=== PATIENT | male | born 1985 | race Caucasian/White ===

== ENCOUNTER 2022-02-13 23:42 | Inpatient (IN) | payer OTHER, SELFPAY ==
--- NOTE | 2022-02-14 | ECG_ITS ---
Test Reason : qtc check Blood Pressure : / mmHG Vent. Rate : 069 BPM Atrial Rate : 069 BPM P-R Int : 160 ms QRS Dur : 086 ms QT Int : 380 ms P-R-T Axes : 072 059 051 degrees QTc Int : 407 ms Normal sinus rhythm Normal ECG No previous ECGs available Referred By: Zachariah Sutton Electronically Signed By:IWONA FREDERICK
[2022-02-14 00:01] VITALS: BP 104/68; PULSE 64; RESP 16; TEMP 36.4; O2SAT 100
[2022-02-14 00:48] VITALS: BMI 20.7
[2022-02-14] MEDS: OLANZapine 5 MG TABLET PO (01:15)
--- NOTE | 2022-02-14 03:00 | PC.ADMIT ---
pt was transferred from [facility] via ambulance. on arrival pt is awake. he responds appropriately to simple questions. he was presented with c-v documentation which was verbally explained to him. pt also took time to read the document. to begin, a great deal of intake information is taken from the medical record due to pts noncompliance with admission process. apparently earlier in the day pts mom contact ems who responded to pts apartment with concerns over his general well being. at this time he was felt to be experiencing a mental health decompensation. a section 12 a was filed at the scene and pt was brought into [facility] for further evaluation. pts mother was concerned that her son had stopped taking his psych meds 2 months ago and had become reclusive. pt had not left his apartment in over 6 weeks. his mom was also concerned that he was not eating or performing his adls. when asked pt does not know the last time he ate or slept. with intake interview, pt avoids eye contact. he is soft spoken and answers very few questions. he either states that he does not know or does not want to answer the question. he is a very poor historian. he is able to state the year, month and day correctly. he answers yes to a hx of opiate dependence but states he has not used. he does not know when he last used. he states that he has had surgery to his lower back and left hand. he does not know when these surgeries were or why they were performed. he refuses to sign any release forms. he does not know what medications he takes or when he last took them. he states he has no allergies. he is unshaven and has an unkempt appearance. he has multiple well healed linear scars on his left arm which the medical record indicates were self inflicted lacerations in 2020 requiring suturing. the condition of his feet is concerning. the soles of his feet are filthy. the right great toe has a black discolored area on the distal portion of the toe. the right foot is discolored with a red/purple area of demarcation about [address] up the foot. a large area of purple discoloration is present on top of the right foot. the left foot is also discolored with swelling noted in the toes and an area of red/purple discoloration extending upward into the lower leg. according to the record and pt these are injuries caused by 3rd degree smith bite. unfortunately pt suffered these thermal injuries on his feet after he was found naked outdoors in May 2021. pt is ambulatory with a steady gait. lab work done at [facility] showed negative NIELSEN and negative covid. following intake pt ate a sandwich with juice and retired for the night.
[2022-02-14 08:00] VITALS: BP 100/60; PULSE 60; RESP 16; TEMP 36.2; O2SAT 98
[2022-02-14] MEDS: OLANZapine 10 MG TABLET PO ×2 (09:17→21:37)
--- NOTE | 2022-02-14 10:08 | P.HPPS_ITS ---
HPI Date of Service: 02/14/22 Chief Complaint: Schizoaffective d/o bipolar type, PTSD, opioid use Sources of Information: patient interviewed, chart reviewed and crisis/core team assessment reviewed HPI Subjective Notes: Tejeda Warning and Conditional Voluntary Narrative: Patient is a 36-year-old male with history of psychotic illness, substance abuse, past psychiatric hospitalizations who presents after his mother 911 Out of concern for patient's worsening disorganization over the past few weeks, no longer attending to ADLs, not eating or feeding his dog. Patient has been off medications Zyprexa and Haldol for at least 2 months. Patient is difficult with which to engage, not wanting to discuss much in giving one-word answers to most questions. During interview, he stays lying on his bed, sometimes opening his eyes to look at telegraphic typewriter operator chief but not wanting to move. He is malodorous and unkempt. He says he stopped taking medications because they did not help much. He consents to restarting Zyprexa Saying it is Good enough however he is unwilling to discuss trying another medication. Patient denies AVH, denies depression denies anxiety denies SI denies HI denies any paranoid or delusional thinking; says he overall sleeps well. He disputes his mother's report and says he has been eating and that he has been feeding his dog. Past Psychiatric History: History of past psychiatric hospitalizations History of superficial self-harm by cutting his arms requiring complex sutures This past May 2021, patient was disorganized, naked outside and suffered third-degree smith bite on his feet Medical Evaluation Reviewed: Yes (refused examination) 3rd degree frostbite discerned from nursing documentation- stable -Pt found naked outdoors in May 2021 -Has chronic red/purple demarcation 3/4 way up right foot with black discoloration of distal right great toe [facility] Medical History (Updated 02/14/22 @ 12:08 by STEVEN Mendez) Chronic pain PTSD (post-traumatic stress disorder) Schizoaffective disorder, bipolar type Family History: Unknown Social History: Graduated high school Patient's ex- and 2 children live with biological mother in [place] Patient currently lives alone in his own apartment with his dog Few to no interactions with anyone other than his mother Substance History: Reported history of substance abuse; patient poor historian Trauma History: Record reports history of trauma, though no details Diagnostics Vital Signs (24Hr): Vital Signs - 24 hr 02/14/22 00:01 Temperature 97.5 F Pulse Rate 64 Respiratory Rate 16 Blood Pressure 104/68 Pulse Oximetry 100 Oxygen Delivery Method Room Air BMI result Body Mass Index 20.7 Meds/Allergies Meds Home Medications Medication Instructions Recorded Confirmed Type clonidine HCl 0.1 mg tablet 1 tab PO BEDTIME 02/14/22 02/14/22 History haloperidol 5 mg tablet mg PO 02/14/22 History hydromorphone 2 mg tablet 1 tab PO Q4H PRN pain 02/14/22 02/14/22 History (Dilaudid) olanzapine 10 mg tablet 1 tab PO BID 02/14/22 02/14/22 History oxcarbazepine 150 mg tablet 1 tab PO BID 02/14/22 02/14/22 History silver sulfadiazine 1 % topical appl topical QAM 02/14/22 History cream (Silvadene) Allergies Allergies Allergy/AdvReac Type Severity Reaction Status Date / Time No Known Allergies Allergy Verified 02/14/22 00:14 Mental Status Exam Mental Status Exam Narrative: Pt is alert and oriented; behavior is guarded, marginally cooperative; patient is not in distress; dressed in hospital attire, Disheveled, malodorous; mood is described as ok and affect constricted; eye contact appropriate; Speech is normal rate, volume and prosody and not pressured; psychomotor retardation present; thought process is goal directed; Thought content is vacuous; able to be pertinent to relevant topics; no delusional, paranoid ideations expressed or solicited; denies any SI/HI. Denies AVH; Patients insight and judgment impaired. Assessment & Plan Assessment & Plan (1) Schizoaffective disorder, bipolar type: Status: Acute Code(s): F25.0 - Schizoaffective disorder, bipolar type (2) PTSD (post-traumatic stress disorder): Status: Acute Code(s): F43.10 - Post-traumatic stress disorder, unspecified Plan Patient is a 36-year-old male with history of psychotic illness, substance abuse, past psychiatric hospitalizations who presents after his mother 911 Out of concern for patient's worsening disorganization over the past few weeks, no longer attending to ADLs, not eating or feeding his dog. Patient is malodorous, disheveled -patient is a poor historian not willing to engage giving very minimal answers, irritable edge. Denies all psych symptoms but agrees to restart Zyprexa. PLAN: CV Q 15 minute checks Zyprexa 10 mg b.i.d. Refuses other medication or medication changes Will need to gather more collateral Patient educated on: diagnosis and medication risk/benefits Informed Consent: understands and further education needed Reason for continued inpatient stay Substantial Risk for: inability to function and rapid decompensation
--- NOTE | 2022-02-14 12:04 | P.CONHOSP_ITS ---
History of Present Illness Data of Consult Service Date: 02/14/22 Requesting physician: Zachariah Sutton Primary Care Provider: TERRANCE Samuels HPI Reason for consult: medical h&p 36 year old male with history of chronic pain possibly from frostbite on dilaudid and schizoaffective d/o bipolar type and ptsd admitted to psychiatry from [facility] [place]. Patient is refusing examination and discussion with hospitalist STEVEN at this time. He does deny any complaints. Review of Systems Review of Systems: General: No fevers, malaise, unintentional weight loss Cardiovascular: No chest pain, palpitations, or leg edema Respiratory: No shortness of breath, wheezing, cough GI: No abdominal pain, nausea, vomiting, diarrhea, constipation, melena, hematochezia Neuro: No headaches, weakness, paresthesias Skin: No rashes or lesions [facility] Medical History (Updated 02/14/22 @ 12:08 by STEVEN Mendez) Chronic pain PTSD (post-traumatic stress disorder) Schizoaffective disorder, bipolar type Pertinent family history: Pt refuses to participate in interview with hospitalist STEVEN at this time. Social History Household Members: None Housing: Unknown / Unable to assess Do you presently have visiting nurse or other home services: No Patient Tobacco Use Status: Current everyday Tobacco user Tobacco use type: Cigarette Smoked in Last 30 Days: Yes e-Cigarette/Vaping Use: Never Used Patient Interested in Nicotine Replacement: Yes Patient Given Instructions on How to Stop Smoking: No (not interested) Second Hand Smoke Exposure: No Use of substances other than those prescribed or required for medical reasons: Yes Substance Use Type: Opiates Substance Use Frequency: Daily Last Used Substance: Unknown Currently Displaying Signs/Symptoms of Drug Intoxication Withdrawal: No Any prior treatment program specific to substance use: No Advance Directives: No Advance Directives Information Provided: No Do you have thoughts of harming others: None Do you have a plan to hurt others: No Plan Recently lost weight without trying: Unsure How much weight loss: Unsure Eating poorly because of decreased appetite: Yes Nutrition screen score: 5 Nutrition Risks: Anorexia and Poor intake 0-25% >4 days Poor oral hygiene: Yes Meds Allergies Allergy/AdvReac Type Severity Reaction Status Date / Time No Known Allergies Allergy Verified 02/14/22 00:14 Active Medications: Current Medications Acetaminophen (Acetaminophen 325 Mg Tablet) 650 mg PO Q6H PRN PRN Reason: Headache/Pain Mild Scale (1-3) Al Hydroxide/Mg Hydroxide (Magnesium Hydrox/Alum Hydrox 30 Ml Oral.Susp) 30 ml PO Q6H PRN PRN Reason: Heartburn/Nausea Diphenhydramine HCl (Diphenhydramine Hcl 25 Mg Tablet) 50 mg PO Q4H PRN PRN Reason: agitation Haloperidol (Haloperidol 5 Mg Tablet) 5 mg PO Q4H PRN PRN Reason: agitation Hydroxyzine HCl (Hydroxyzine Hcl 25 Mg Tablet) 25 mg PO Q6H PRN PRN Reason: Anxiety Lorazepam (Lorazepam 1 Mg Tablet) 2 mg PO Q4H PRN PRN Reason: agitation Magnesium Hydroxide (Milk Of Magnesia 30 Ml Oral.Susp) 30 ml PO DAILY PRN PRN Reason: Constipation Nicotine (Nicotine 21 Mg Patch.Td24) 21 mg TRANSDERMA DAILY PRN PRN Reason: nicotine craving Nicotine Polacrilex (Nicotine Polacrilex 2 Mg Gum) 4 mg BUCCAL Q2H PRN PRN Reason: Nicotine Cravings Olanzapine (Olanzapine 10 Mg Tablet) 10 mg PO BID SABIHA Last Admin: 02/14/22 09:17 Dose: 10 mg Trazodone HCl (Trazodone Hcl 50 Mg Tablet) 50 mg PO BEDTIME PRN PRN Reason: Insomnia Home Medications Medication Instructions Recorded Confirmed Last Taken Type clonidine HCl 0.1 mg tablet 1 tab PO BEDTIME 02/14/22 02/14/22 Unknown History haloperidol 5 mg tablet mg PO 02/14/22 Unknown History hydromorphone 2 mg tablet 1 tab PO Q4H PRN pain 02/14/22 02/14/22 Unknown History (Dilaudid) olanzapine 10 mg tablet 1 tab PO BID 02/14/22 02/14/22 Unknown History oxcarbazepine 150 mg tablet 1 tab PO BID 02/14/22 02/14/22 Unknown History silver sulfadiazine 1 % topical appl topical QAM 02/14/22 Unknown History cream (Silvadene) Physical Exam Vital Signs and Narrative: Vital Signs: Last Vital Signs Temp 97.5 F 02/14/22 00:01 Pulse 64 02/14/22 00:01 Resp 16 02/14/22 00:01 BP 104/68 02/14/22 00:01 Pulse Ox 100 02/14/22 00:01 O2 Del Method 02/14/22 00:01 BMI result Body Mass Index 20.7 Pt refuses exam Assessment and Plan (1) Schizoaffective disorder, bipolar type: Status: Acute (2) PTSD (post-traumatic stress disorder): Status: Acute Plan 36 year old male with history of chronic pain on dilaudid and schizoaffective d/o bipolar type and ptsd admitted to psychiatry. Patient refuses to participate in exam and interview with hospitalist STEVEN at this time. He does deny any medical complaints at this time. 1- Schizoaffective d/o bipolar type -Plan per psychiatry 2-PTSD -Plan per psychiatry 3-Chronic pain of unclear etiology at this time -Continue dilaudid -Plan per psychiatry. 4-3rd degree frostbite discerned from nursing documentation- stable -Pt found naked outdoors in May 2021 -Has chronic red/purple demarcation 3/4 way up right foot with black discoloration of distal right great toe Thank you for allowing me to participate in this consult. Signing off at this time. Please do not hesitate to call for further questions or if pt does have any medical complaints/concerns.
[2022-02-14 16:30] VITALS: BP 95/51; PULSE 68; RESP 16; TEMP 36.3; O2SAT 96
[2022-02-14 19:30] VITALS: BP 86/55; PULSE 88
[2022-02-15 06:00] VITALS: BP 109/68; PULSE 59; RESP 18; TEMP 36.6
[2022-02-15 07:00] VITALS: BMI 21.4
[2022-02-15 08:14] LABS: MANUAL DIFF FLAG NO
[2022-02-15 08:17] LABS: Basophils Percent Auto 0.9 % (0-2); Eosinophils Absolute Auto 0.1 X10*3/uL (0.0-0.4); Eosinophils Percent Auto 2.6 % (0-4); Hematocrit 42.4 % (42.0-52.0); Hemoglobin 14.3 g/dl (14.0-18.0); Imm Gran Abs Auto 0.01 X10*3/uL (0.00-0.03); Imm Gran Pct Auto 0.2 % (0.0-0.4); Lymphocytes Percent Auto 44.2 % (20-40); Mean Corpuscular HGB Conc 33.7 g/dl (31.0-36.0); Mean Corpuscular Hemoglobin 29.9 pg (27.0-33.0); Mean Corpuscular Volume 88.7 fL (80.0-98.0); Mean Platelet Volume 9.9 fL (9.4-12.4); Monocytes Absolute Auto 0.3 X10*3/uL (0.1-1.2); Monocytes Percent Auto 7.4 % (2-11); Neutrophils Absolute Auto 2.1 x10*3/uL (2.0-8.3); Neutrophils Percent Auto 44.7 % (45-73); Platelet Count 144 X10*3/uL (160-400); Red Blood Count 4.78 X10*6/uL (4.60-5.80); Red Cell Distribution Width 12.2 % (11.0-16.0); White Blood Count 4.6 X10*3/uL (4.8-10.8)
[2022-02-15] MEDS: OLANZapine 10 MG TABLET PO ×2 (08:55→21:01)
[2022-02-15 08:58] LABS: Estimated Average Glucose 100 mg/dL; Hemoglobin A1c % 5.1 %
[2022-02-15 08:59] LABS: Cholesterol 110 mg/dL; HDL Cholesterol 35 mg/dL; LDL Cholesterol Calculated 65 mg/dl; Triglycerides 53 mg/dL
--- NOTE | 2022-02-15 16:10 | HO.PSYCHPN ---
Subjective Subjective Date of Service: 02/15/22 Reason For Visit: Schizoaffective d/o bipolar type, PTSD, opioid use Interim History: Late entry note for patient seen 02/15 Patient gave technical report writer and social psychologist verbal permission to discuss his case with his mother. He did not want to sign a release form however. Patient remains in bed all the time, very difficult to engage. Marketing Program Manager asks about his experience being here which he says is all right. However upon inquiry of other questions he mostly stays silent. Marketing Program Manager eventuality asks if he is aware that he is not answering questions and patient shrugs his shoulders. He does deny SI or HI or AVH. Upon further inquiry, patient was willing to answer some questions about his mother's concern that he was not eating and was not showering to which he said something to the effect of that sounds right. He Asked how long he had a be here and technical report writer explained the need for him to be able to take care of himself in the community to which patient nodded. Patient is eating here on the unit. Staff reports patient did shower with significant prompting however staff suspects patient did not use soap or water as he returned from a shower malodorous Nurse looked at patient's right foot/toe status post frostbite from May 2021 and described it as a dime sized scabbed area to right toe; not painful; has sensation when touched; it does deepak; without any signs of infection. Also patch of dry skin on dorsum of foot Mental Status Exam Mental Status Exam Narrative: Pt is alert and oriented; behavior is guarded, marginally cooperative; patient is not in distress; dressed in hospital attire, Disheveled, malodorous; mood is described as alright and affect blunted or constricted; eye contact minimal; Speech is sparse but when talks, normal rate, volume and prosody and not pressured; psychomotor retardation present; thought process can be goal directed but disorganized; Thought content is vacuous, internally preoccupied and with thought blocking; denies delusional, paranoid ideations and none expressed or solicited; denies any SI/HI. Denies AVH; Patients insight and judgment impaired. Diagnostics Vital Signs (24Hr): Vital Signs - 24 hr 02/15/22 17:55 Temperature 98.7 F Pulse Rate 72 Blood Pressure 112/69 BMI result Body Mass Index 21.4 Labs Results: 02/15/22 07:48 Labs: Laboratory Results - last 48 hr 02/15/22 02/15/22 02/15/22 07:48 07:48 07:48 WBC 4.6 L RBC 4.78 Hgb 14.3 Hct 42.4 MCV 88.7 MCH 29.9 MCHC 33.7 RDW 12.2 Plt Count 144 L MPV 9.9 Immature Gran % (Auto) 0.2 Neut % (Auto) 44.7 L Lymph % (Auto) 44.2 H Kimball % (Auto) 7.4 Eos % (Auto) 2.6 Baso % (Auto) 0.9 Lymph # (Auto) 2.0 Kimball # (Auto) 0.3 Eos # (Auto) 0.1 Baso # (Auto) 0.0 Abs Immat Gran (auto) 0.01 Absolute Neuts (auto) 2.1 Absolute Nucleated RBC 0.000 Nucleated RBC % (auto) 0.0 Estimat Average Glucose 100 Hemoglobin A1c % 5.1 Triglycerides 53 Cholesterol 110 LDL Cholesterol, Calc 65 HDL Cholesterol 35 EKG EKG Comment: Date of Service: 02/14/22 Procedure(s): ECG 12 lead EKG Blood Pressure : / mmHG Vent. Rate : 069 BPM ? ? Atrial Rate : 069 BPM ?? P-R Int : 160 ms? QRS Dur : 086 ms ? ? QT Int : 380 ms ? ? ? P-R-T Axes : 072 059 051 degrees ?? QTc Int : 407 ms ? Normal sinus rhythm Normal ECG No previous ECGs available ? Medications Medications Current Medications Acetaminophen (Acetaminophen 325 Mg Tablet) 650 mg PO Q6H PRN PRN Reason: Headache/Pain Mild Scale (1-3) Al Hydroxide/Mg Hydroxide (Magnesium Hydrox/Alum Hydrox 30 Ml Oral.Susp) 30 ml PO Q6H PRN PRN Reason: Heartburn/Nausea Diphenhydramine HCl (Diphenhydramine Hcl 25 Mg Tablet) 50 mg PO Q4H PRN PRN Reason: agitation Haloperidol (Haloperidol 5 Mg Tablet) 5 mg PO Q4H PRN PRN Reason: agitation Hydroxyzine HCl (Hydroxyzine Hcl 25 Mg Tablet) 25 mg PO Q6H PRN PRN Reason: Anxiety Lorazepam (Lorazepam 1 Mg Tablet) 2 mg PO Q4H PRN PRN Reason: agitation Magnesium Hydroxide (Milk Of Magnesia 30 Ml Oral.Susp) 30 ml PO DAILY PRN PRN Reason: Constipation Nicotine (Nicotine 21 Mg Patch.Td24) 21 mg TRANSDERMA DAILY PRN PRN Reason: nicotine craving Nicotine Polacrilex (Nicotine Polacrilex 2 Mg Gum) 4 mg BUCCAL Q2H PRN PRN Reason: Nicotine Cravings Olanzapine (Olanzapine 10 Mg Tablet) 10 mg PO BID SABIHA Last Admin: 02/15/22 21:01 Dose: 10 mg Trazodone HCl (Trazodone Hcl 50 Mg Tablet) 50 mg PO BEDTIME PRN PRN Reason: Insomnia Allergies Allergies Allergy/AdvReac Type Severity Reaction Status Date / Time No Known Allergies Allergy Verified 02/14/22 00:14 Assessment & Plan Assessment & Plan (1) Schizoaffective disorder, bipolar type: Status: Acute Code(s): F25.0 - Schizoaffective disorder, bipolar type (2) PTSD (post-traumatic stress disorder): Status: Acute Code(s): F43.10 - Post-traumatic stress disorder, unspecified Plan Patient is a 36-year-old male with history of psychotic illness, substance abuse, past psychiatric hospitalizations who presents after his mother 911 Out of concern for patient's worsening disorganization over the past few weeks, no longer attending to ADLs, not eating or feeding his dog. Patient is malodorous, disheveled -patient is a poor historian not willing to engage giving very minimal answers, irritable edge. Denies all psych symptoms but agrees to restart Zyprexa. 02/15 patient remains difficult to engage; has disorganized thought process, thought blocking and as internally preoccupied. Remains malodorous. Is taking medication however. Agrees he was not eating or bathing for several weeks, but cannot say why. Asked how long he had a be here and technical report writer explained the need for him to be able to take care of himself in the community to which patient nodded. Will continue with Zyprexa and see if this helps improve patient's negative symptoms PLAN: CV Q 15 minute checks Zyprexa 10 mg b.i.d. Refuses other medication or medication changes Will need to gather more collateral EKG checked; QT Int : 380 ms/?? QTc Int : 407 ms I spent minutes with the patient and/or on the patient floor today, greater than?50% of which was spent counseling/coordinating care. Patient educated on: diagnosis, medication risk/benefits and medical condition Informed Consent: understands, does not understand and further education needed Reason for contiued inpatient stay Substantial Risk for: inability to function
[2022-02-15 17:55] VITALS: BP 112/69; PULSE 72; TEMP 37.1
--- NOTE | 2022-02-16 08:23 | P.PNPSI_ITS ---
Subjective Subjective Date of Service: 02/16/22 Reason For Visit: Schizoaffective d/o bipolar type, PTSD, opioid use Interim History: Patient remains difficult with which to engage. Lying in bed keeping to himself saying very little. Hospitalist saw patient is toe and agrees that it looks like it is healing well. Hospitalist Dr. Sprague recommended calling wound care anyway just to see if they have any recommendations. Patient denies any psychiatric symptoms. He says that he has no thoughts while he lies there on bed. He is eating on the unit. Discussed increasing Zyprexa. He asked why and development writer explained that at home he was not taking her himself not eating not bathing and before he goes back home team would like to see him able to attend to his daily living needs. Patient agreed and said he would go up on Zyprexa Mental Status Exam Mental Status Exam Narrative: Pt is alert and oriented; behavior is guarded, marginally cooperative; patient is not in distress; dressed in hospital attire, Disheveled, malodorous; mood is described as alright and affect blunted or constricted; eye contact minimal; Speech is sparse but when talks, normal rate, volume and prosody and not pressured; psychomotor retardation present; thought process can be goal directed but disorganized; Thought content is vacuous, internally preoccupied and with thought blocking; denies delusional, paranoid ideations and none expressed or solicited; denies any SI/HI. Denies AVH; Patients insight and judgment impaired. Diagnostics Vital Signs (24Hr): Vital Signs - 24 hr 02/15/22 17:55 Temperature 98.7 F Pulse Rate 72 Blood Pressure 112/69 BMI result Body Mass Index 21.4 Labs Results: 02/15/22 07:48 Labs: Laboratory Results - last 48 hr 02/15/22 02/15/22 02/15/22 07:48 07:48 07:48 WBC 4.6 L RBC 4.78 Hgb 14.3 Hct 42.4 MCV 88.7 MCH 29.9 MCHC 33.7 RDW 12.2 Plt Count 144 L MPV 9.9 Immature Gran % (Auto) 0.2 Neut % (Auto) 44.7 L Lymph % (Auto) 44.2 H Montgomery % (Auto) 7.4 Eos % (Auto) 2.6 Baso % (Auto) 0.9 Lymph # (Auto) 2.0 Montgomery # (Auto) 0.3 Eos # (Auto) 0.1 Baso # (Auto) 0.0 Abs Immat Gran (auto) 0.01 Absolute Neuts (auto) 2.1 Absolute Nucleated RBC 0.000 Nucleated RBC % (auto) 0.0 Estimat Average Glucose 100 Hemoglobin A1c % 5.1 Triglycerides 53 Cholesterol 110 LDL Cholesterol, Calc 65 HDL Cholesterol 35 Medications Medications Current Medications Acetaminophen (Acetaminophen 325 Mg Tablet) 650 mg PO Q6H PRN PRN Reason: Headache/Pain Mild Scale (1-3) Al Hydroxide/Mg Hydroxide (Magnesium Hydrox/Alum Hydrox 30 Ml Oral.Susp) 30 ml PO Q6H PRN PRN Reason: Heartburn/Nausea Diphenhydramine HCl (Diphenhydramine Hcl 25 Mg Tablet) 50 mg PO Q4H PRN PRN Reason: agitation Haloperidol (Haloperidol 5 Mg Tablet) 5 mg PO Q4H PRN PRN Reason: agitation Hydroxyzine HCl (Hydroxyzine Hcl 25 Mg Tablet) 25 mg PO Q6H PRN PRN Reason: Anxiety Lorazepam (Lorazepam 1 Mg Tablet) 2 mg PO Q4H PRN PRN Reason: agitation Magnesium Hydroxide (Milk Of Magnesia 30 Ml Oral.Susp) 30 ml PO DAILY PRN PRN Reason: Constipation Nicotine (Nicotine 21 Mg Patch.Td24) 21 mg TRANSDERMA DAILY PRN PRN Reason: nicotine craving Nicotine Polacrilex (Nicotine Polacrilex 2 Mg Gum) 4 mg BUCCAL Q2H PRN PRN Reason: Nicotine Cravings Olanzapine (Olanzapine 10 Mg Tablet) 10 mg PO BID [facility] Last Admin: 02/15/22 21:01 Dose: 10 mg Trazodone HCl (Trazodone Hcl 50 Mg Tablet) 50 mg PO BEDTIME PRN PRN Reason: Insomnia Allergies Allergies Allergy/AdvReac Type Severity Reaction Status Date / Time No Known Allergies Allergy Verified 02/14/22 00:14 Assessment & Plan Assessment & Plan (1) Schizoaffective disorder, bipolar type: Status: Acute Code(s): F25.0 - Schizoaffective disorder, bipolar type (2) PTSD (post-traumatic stress disorder): Status: Acute Code(s): F43.10 - Post-traumatic stress disorder, unspecified Plan Patient is a 36-year-old male with history of psychotic illness, substance abuse, past psychiatric hospitalizations who presents after his mother 911 Out of concern for patient's worsening disorganization over the past few weeks, no longer attending to ADLs, not eating or feeding his dog. Patient is malodorous, disheveled -patient is a poor historian not willing to engage giving very minimal answers, irritable edge. Denies all psych symptoms but agrees to restart Zyprexa. 02/15 patient remains difficult to engage; has disorganized thought process, thought blocking and as internally preoccupied. Remains malodorous. Is taking medication however. Agrees he was not eating or bathing for several weeks, but cannot say why. Asked how long he had a be here and development writer explained the need for him to be able to take care of himself in the community to which patient nodded. Will continue with Zyprexa and see if this helps improve patient's negative symptoms 02/16 remains isolative difficult to engage; says he has no thoughts in his head. Agrees to go up on Zyprexa and agrees that he was not taking care of himself in the community. PLAN: CV Q 15 minute checks Zydis 10mg AM Zydis 20mg qhs (switched desired is for now to better ensure patient is taking medications) Wound care consult for right Hallux (development writer and hospitalist examined and both agree looks like it is healing appropriately; will get Wound consult to see if they have any further recommendations; There is also a dry scaly red patch on dorsum of right foot, not warm, no signs of infection that is also was from the time he got frostbite back in May 2021; denies pain) Refuses other medication or medication changes Will need to gather more collateral EKG checked; QT Int : 380 ms/?? QTc Int : 407 ms I spent minutes with the patient and/or on the patient floor today, greater than?50% of which was spent counseling/coordinating care. Patient educated on: diagnosis, medication risk/benefits and medical condition Informed Consent: understands and further education needed Reason for contiued inpatient stay Substantial Risk for: inability to function
[2022-02-16] MEDS: OLANZapine 10 MG TABLET PO (08:56)
[2022-02-16 08:59] VITALS: BP 101/68; PULSE 75; RESP 16; TEMP 36.3; O2SAT 98
[2022-02-16 18:00] VITALS: BP 124/78; PULSE 68; RESP 16; TEMP 36.8; O2SAT 99
[2022-02-16] MEDS: OLANZapine ODT 10 MG TAB.RAPDIS 20 MG TRANSLINGU (19:33)
[2022-02-17] MEDS: OLANZapine ODT 10 MG TAB.RAPDIS TRANSLINGU (09:37)
--- NOTE | 2022-02-17 10:16 | P.PNPSI_ITS ---
Subjective Subjective Date of Service: 02/17/22 Reason For Visit: Schizoaffective d/o bipolar type, PTSD, opioid use Interim History: pt remains lying in bed, vacant stare; denies psychiatric symptoms. Pt however did eat all his breakfast Mental Status Exam Mental Status Exam Narrative: Pt is alert and oriented; behavior is guarded, marginally cooperative; patient is not in distress; dressed in hospital attire, Disheveled, malodorous; mood is described as fine and affect blunted or constricted; eye contact minimal; Speech is sparse but when talks, normal rate, volume and prosody and not pressured; psychomotor retardation present; thought process can be goal directed but disorganized; Thought content is vacuous, internally preoccupied and with thought blocking; denies delusional, paranoid ideations and none expressed or solicited; denies any SI/HI. Denies AVH; Patients insight and judgment impaired. Diagnostics Vital Signs (24Hr): Vital Signs - 24 hr 02/16/22 18:00 Temperature 98.2 F Pulse Rate 68 Respiratory Rate 16 Blood Pressure 124/78 Pulse Oximetry 99 Oxygen Delivery Method Room Air BMI result Body Mass Index 21.4 Labs Results: 02/15/22 07:48 Medications Medications Current Medications Acetaminophen (Acetaminophen 325 Mg Tablet) 650 mg PO Q6H PRN PRN Reason: Headache/Pain Mild Scale (1-3) Al Hydroxide/Mg Hydroxide (Magnesium Hydrox/Alum Hydrox 30 Ml Oral.Susp) 30 ml PO Q6H PRN PRN Reason: Heartburn/Nausea Diphenhydramine HCl (Diphenhydramine Hcl 25 Mg Tablet) 50 mg PO Q4H PRN PRN Reason: agitation Haloperidol (Haloperidol 5 Mg Tablet) 5 mg PO Q4H PRN PRN Reason: agitation Hydroxyzine HCl (Hydroxyzine Hcl 25 Mg Tablet) 25 mg PO Q6H PRN PRN Reason: Anxiety Lorazepam (Lorazepam 1 Mg Tablet) 2 mg PO Q4H PRN PRN Reason: agitation Magnesium Hydroxide (Milk Of Magnesia 30 Ml Oral.Susp) 30 ml PO DAILY PRN PRN Reason: Constipation Nicotine (Nicotine 21 Mg Patch.Td24) 21 mg TRANSDERMA DAILY PRN PRN Reason: nicotine craving Nicotine Polacrilex (Nicotine Polacrilex 2 Mg Gum) 4 mg BUCCAL Q2H PRN PRN Reason: Nicotine Cravings Olanzapine (Olanzapine Odt 10 Mg Tab.Rapdis) 20 mg TRANSLINGU BEDTIME [facility] Last Admin: 02/16/22 19:33 Dose: 20 mg Olanzapine (Olanzapine Odt 10 Mg Tab.Rapdis) 10 mg TRANSLINGU DAILY [facility] Last Admin: 02/17/22 09:37 Dose: 10 mg Trazodone HCl (Trazodone Hcl 50 Mg Tablet) 50 mg PO BEDTIME PRN PRN Reason: Insomnia Allergies Allergies Allergy/AdvReac Type Severity Reaction Status Date / Time No Known Allergies Allergy Verified 02/14/22 00:14 Assessment & Plan Assessment & Plan (1) Schizoaffective disorder, bipolar type: Status: Acute Code(s): F25.0 - Schizoaffective disorder, bipolar type (2) PTSD (post-traumatic stress disorder): Status: Acute Code(s): F43.10 - Post-traumatic stress disorder, unspecified Plan Patient is a 36-year-old male with history of psychotic illness, substance abus e, past psychiatric hospitalizations who presents after his mother 911 Out of concern for patient's worsening disorganization over the past few weeks, no longer attending to ADLs, not eating or feeding his dog. Patient is malodorous, disheveled -patient is a poor historian not willing to engage giving very minimal answers, irritable edge. Denies all psych symptoms but agrees to restart Zyprexa. 02/15 patient remains difficult to engage; has disorganized thought process, thought blocking and as internally preoccupied. Remains malodorous. Is taking medication however. Agrees he was not eating or bathing for several weeks, but cannot say why. Asked how long he had a be here and lead technical writer explained the need for him to be able to take care of himself in the community to which patient nodded. Will continue with Zyprexa and see if this helps improve patient's negative symptoms 02/16 remains isolative difficult to engage; says he has no thoughts in his head. Agrees to go up on Zyprexa and agrees that he was not taking care of himself in the community. 02/17 presents the same; will continue to give increased zyprexa dose time to work; did eat all of his breakfast PLAN: CV Q 15 minute checks Zydis 10mg AM Zydis 20mg qhs (switched desired is for now to better ensure patient is taking m edications) Wound care consult for right Hallux (lead technical writer and hospitalist examined and both agree looks like it is healing appropriately; will get Wound consult to see if they have any further recommendations; There is also a dry scaly red patch on dorsum of right foot, not warm, no signs of infection that is also was from the time he got frostbite back in May 2021; denies pain) Refuses other medication or medication changes Will need to gather more collateral EKG checked; QT Int : 380 ms/?? QTc Int : 407 ms I spent minutes with the patient and/or on the patient floor today, greater than?50% of which was spent counseling/coordinating care. Patient educated on: diagnosis Informed Consent: further education needed Reason for contiued inpatient stay Substantial Risk for: rapid decompensation
[2022-02-17 18:00] VITALS: BP 122/78; PULSE 78; RESP 16; TEMP 36.5; O2SAT 99
[2022-02-18] MEDS: OLANZapine ODT 10 MG TAB.RAPDIS TRANSLINGU (09:10)
--- NOTE | 2022-02-18 14:38 | HO.PSYCHPN ---
Subjective Subjective Date of Service: 02/18/22 Reason For Visit: Schizoaffective d/o bipolar type, PTSD, opioid use Interim History: Patient remains Overallvery difficult with which to engage. Lying in bed. However, When sports writer says hello, he does returnThe courtesy and asks how sports writer is doing. He also makes a small joke and says that he is D[place]. Otherwise difficult to get much out of him. Denies any complaints and has no requests. Says he is not thinking about anything and denies all psychiatric symptoms. Patient did finish all his meals today so far. Otherwise has not left his room Mental Status Exam Mental Status Exam Narrative: Pt is alert and oriented; behavior is guarded, marginally cooperative; patient is not in distress; dressed in hospital attire, Disheveled, malodorous; mood is described as fine and affect blunted or constricted; eye contact minimal; Speech is sparse but when talks, normal rate, volume and prosody and not pressured; psychomotor retardation present; thought process can be goal directed but disorganized; Thought content is vacuous, internally preoccupied and with thought blocking; denies delusional, paranoid ideations and none expressed or solicited; denies any SI/HI. Denies AVH; Patients insight and judgment impaired. Diagnostics Vital Signs (24Hr): Vital Signs - 24 hr 02/17/22 18:00 Temperature 97.7 F Pulse Rate 78 Respiratory Rate 16 Blood Pressure 122/78 Pulse Oximetry 99 Oxygen Delivery Method Room Air BMI result Body Mass Index 21.4 Labs Results: 02/15/22 07:48 Medications Medications Current Medications Acetaminophen (Acetaminophen 325 Mg Tablet) 650 mg PO Q6H PRN PRN Reason: Headache/Pain Mild Scale (1-3) Al Hydroxide/Mg Hydroxide (Magnesium Hydrox/Alum Hydrox 30 Ml Oral.Susp) 30 ml PO Q6H PRN PRN Reason: Heartburn/Nausea Diphenhydramine HCl (Diphenhydramine Hcl 25 Mg Tablet) 50 mg PO Q4H PRN PRN Reason: agitation Haloperidol (Haloperidol 5 Mg Tablet) 5 mg PO Q4H PRN PRN Reason: agitation Hydroxyzine HCl (Hydroxyzine Hcl 25 Mg Tablet) 25 mg PO Q6H PRN PRN Reason: Anxiety Lorazepam (Lorazepam 1 Mg Tablet) 2 mg PO Q4H PRN PRN Reason: agitation Magnesium Hydroxide (Milk Of Magnesia 30 Ml Oral.Susp) 30 ml PO DAILY PRN PRN Reason: Constipation Nicotine (Nicotine 21 Mg Patch.Td24) 21 mg TRANSDERMA DAILY PRN PRN Reason: nicotine craving Nicotine Polacrilex (Nicotine Polacrilex 2 Mg Gum) 4 mg BUCCAL Q2H PRN PRN Reason: Nicotine Cravings Olanzapine (Olanzapine Odt 10 Mg Tab.Rapdis) 20 mg TRANSLINGU BEDTIME [facility] Last Admin: 02/17/22 20:48 Dose: Not Given Olanzapine (Olanzapine Odt 10 Mg Tab.Rapdis) 10 mg TRANSLINGU DAILY [facility] Last Admin: 02/18/22 09:10 Dose: 10 mg Trazodone HCl (Trazodone Hcl 50 Mg Tablet) 50 mg PO BEDTIME PRN PRN Reason: Insomnia Allergies Allergies Allergy/AdvReac Type Severity Reaction Status Date / Time No Known Allergies Allergy Verified 02/14/22 00:14 Assessment & Plan Assessment & Plan (1) Schizoaffective disorder, bipolar type: Status: Acute Code(s): F25.0 - Schizoaffective disorder, bipolar type (2) PTSD (post-traumatic stress disorder): Status: Acute Code(s): F43.10 - Post-traumatic stress disorder, unspecified Plan Patient is a 36-year-old male with history of psychotic illness, substance abuse, past psychiatric hospitalizations who presents after his mother 911 Out of concern for patient's worsening disorganization over the past few weeks, no longer attending to ADLs, not eating or feeding his dog. Patient is malodorous, disheveled -patient is a poor historian not willing to engage giving very minimal answers, irritable edge. Denies all psych symptoms but agrees to restart Zyprexa. 02/15 patient remains difficult to engage; has disorganized thought process, thought blocking and as internally preoccupied. Remains malodorous. Is taking medication however. Agrees he was not eating or bathing for several weeks, but cannot say why. Asked how long he had a be here and sports writer explained the need for him to be able to take care of himself in the community to which patient nodded. Will continue with Zyprexa and see if this helps improve patient's negative symptoms 02/16 remains isolative difficult to engage; says he has no thoughts in his head. Agrees to go up on Zyprexa and agrees that he was not taking care of himself in the community. 02/17 presents the same; will continue to give increased zyprexa dose time to work; did eat all of his breakfast 02/18 May be a small improvement. Patient is also eating. Will continue with current dosing PLAN: CV Q 15 minute checks Zydis 10mg AM Zydis 20mg qhs (switched desired is for now to better ensure patient is taking medications) Wound care consult for right Hallux (sports writer and hospitalist examined and both agree looks like it is healing appropriately; will get Wound consult to see if they have any further recommendations; There is also a dry scaly red patch on dorsum of right foot, not warm, no signs of infection that is also was from the time he got frostbite back in May 2021; denies pain) Refuses other medication or medication changes Will need to gather more collateral EKG checked; QT Int : 380 ms/?? QTc Int : 407 ms I spent minutes with the patient and/or on the patient floor today, greater than?50% of which was spent counseling/coordinating care. Patient educated on: diagnosis Informed Consent: does not understand Reason for contiued inpatient stay Substantial Risk for: rapid decompensation
[2022-02-18 18:00] VITALS: BP 97/66; PULSE 74; RESP 16; TEMP 36.2; O2SAT 99
[2022-02-18] MEDS: OLANZapine ODT 10 MG TAB.RAPDIS 20 MG TRANSLINGU (20:09)
[2022-02-19 06:00] VITALS: BP 92/56; PULSE 54; RESP 16; TEMP 36.5; O2SAT 98
[2022-02-19] MEDS: OLANZapine ODT 10 MG TAB.RAPDIS TRANSLINGU (08:06)
--- NOTE | 2022-02-19 10:38 | P.PNPSI_ITS ---
Subjective Subjective Date of Service: 02/19/22 Reason For Visit: Schizoaffective d/o bipolar type, PTSD, opioid use Interim History: Patient remains in bed, disheveled, interacting little. However he was easier to engage today, asked how teletypewriter installer was doing, had some infection and his voice, made a little joke... Continues to deny all psychiatric symptoms. Zanjero discussed the need for getting up and moving around even the risk of a DVT which patient said he understands and will do. He said he is not sure what is keeping him from going out in the milieu and teletypewriter installer encouraged patient to give it a try which patient said he would. Of note, patient seems to be predominantly suffer from negative symptoms. Although he does seem internally preoccupied with thought blocking, Mental Status Exam Mental Status Exam Narrative: Pt is alert and oriented; behavior is more cooperative, more conversational; patient is not in distress; dressed in hospital attire, Disheveled, malodorous; mood is described as ok and affect blunted but less and a little more expressive; more eye contact; Speech is normal rate, volume and prosody; psychomotor retardation present; thought process is much more goal directed; still gets disorganized likely due to thought blocking; Thought content per pat ient is vacuous; seems internally preoccupied and with thought blocking; denies delusional, paranoid ideations and none expressed or solicited; denies any SI/HI. Denies AVH; Patients insight and judgment impaired but have improved some. Diagnostics Vital Signs (24Hr): Vital Signs - 24 hr 02/18/22 18:00 02/19/22 06:00 Temperature 97.2 F 97.7 F Pulse Rate 74 54 Respiratory Rate 16 16 Blood Pressure 97/66 92/56 L Pulse Oximetry 99 98 Oxygen Delivery Method Room Air Room Air BMI result Body Mass Index 21.4 Labs Results: 02/15/22 07:48 Medications Medications Current Medications Acetaminophen (Acetaminophen 325 Mg Tablet) 650 mg PO Q6H PRN PRN Reason: Headache/Pain Mild Scale (1-3) Al Hydroxide/Mg Hydroxide (Magnesium Hydrox/Alum Hydrox 30 Ml Oral.Susp) 30 ml PO Q6H PRN PRN Reason: Heartburn/Nausea Diphenhydramine HCl (Diphenhydramine Hcl 25 Mg Tablet) 50 mg PO Q4H PRN PRN Reason: agitation Haloperidol (Haloperidol 5 Mg Tablet) 5 mg PO Q4H PRN PRN Reason: agitation Hydroxyzine HCl (Hydroxyzine Hcl 25 Mg Tablet) 25 mg PO Q6H PRN PRN Reason: Anxiety Magnesium Hydroxide (Milk Of Magnesia 30 Ml Oral.Susp) 30 ml PO DAILY PRN PRN Reason: Constipation Nicotine (Nicotine 21 Mg Patch.Td24) 21 mg TRANSDERMA DAILY PRN PRN Reason: nicotine craving Nicotine Polacrilex (Nicotine Polacrilex 2 Mg Gum) 4 mg BUCCAL Q2H PRN PRN Reason: Nicotine Cravings Olanzapine (Olanzapine Odt 10 Mg Tab.Rapdis) 20 mg TRANSLINGU BEDTIME [facility] Last Admin: 02/18/22 20:09 Dose: 20 mg Olanzapine (Olanzapine Odt 10 Mg Tab.Rapdis) 10 mg TRANSLINGU DAILY [facility] Last Admin: 02/19/22 08:06 Dose: 10 mg Trazodone HCl (Trazodone Hcl 50 Mg Tablet) 50 mg PO BEDTIME PRN PRN Reason: Insomnia Allergies Allergies Allergy/AdvReac Type Severity Reaction Status Date / Time No Known Allergies Allergy Verified 02/14/22 00:14 Assessment & Plan Assessment & Plan (1) Schizoaffective disorder, bipolar type: Status: Acute Code(s): F25.0 - Schizoaffective disorder, bipolar type (2) PTSD (post-traumatic stress disorder): Status: Acute Code(s): F43.10 - Post-traumatic stress disorder, unspecified Plan Patient is a 36-year-old male with history of psychotic illness, substance abuse, past psychiatric hospitalizations who presents after his mother 911 Out of concern for patient's worsening disorganization over the past few weeks, no longer attending to ADLs, not eating or feeding his dog. Patient is malodorous, disheveled -patient is a poor historian not willing to engage giving very minimal answers, irritable edge. Denies all psych symptoms but agrees to restart Zyprexa. 02/15 patient remains difficult to engage; has disorganized thought process, thought blocking and as internally preoccupied. Remains malodorous. Is taking medication however. Agrees he was not eating or bathing for several weeks, but cannot say why. Asked how long he had a be here and teletypewriter installer explained the need for him to be able to take care of himself in the community to which patient nodded. Will continue with Zyprexa and see if this helps improve patient's negative symptoms 02/16 remains isolative difficult to engage; says he has no thoughts in his head. Agrees to go up on Zyprexa and agrees that he was not taking care of himself in the community. 02/17 presents the same; will continue to give increased zyprexa dose time to work; did eat all of his breakfast 02/18 May be a small improvement. Patient is also eating. Will continue with current dosing 02/19 patient is more interactive, conversational. More in flexion is voice, better eye contact and a little more affectively expressive. Still remains on his bed, not moving much, disheveled malodorous but he said he is willing to consider getting up and walking around the milieu more. Patient seems to predominantly suffer from negative symptoms. He is eating and drinking fluids, significant improvement from prior to admission. No insight however and patient says he does not feel any differently than since before admission. However when teletypewriter installer said he is talking more, he smiled and said I guess. As he improves will attempt some reality testing behaviors prior to admission. PLAN: CV Q 15 minute checks Zydis 10mg AM Zydis 20mg qhs (switched desired is for now to better ensure patient is taking medications) Wound care consult for right Hallux: seen on 02/19 No open wound of the right great toe.? No recommendations for topical wound care.? Consider vascular workup if indicated. (teletypewriter installer and hospitalist examined and both agree looks like it is healing appropriately; will get Wound consult to see if they have any further recommendations; There is also a dry scaly red patch on dorsum of right foot, not warm, no signs of infection that is also was from the time he got frostbite back in May 2021; denies pain) Refuses other medication or medication changes EKG checked; QT Int : 380 ms/?? QTc Int : 407 ms I spent minutes with the patient and/or on the patient floor today, greater than?50% of which was spent counseling/coordinating care. Patient educated on: diagnosis and therapeutic strategies Informed Consent: understands and further education needed Reason for contiued inpatient stay Substantial Risk for: rapid decompensation
--- NOTE | 2022-02-19 16:49 | HO.WOUNDCONS ---
History of Present Illness Data of Consult Service Date: 02/19/22 Requesting physician: Zachariah Sutton Primary Care Provider: TERRANCE Samuels HPI Reason for consult: right great toe wound 36 year old male who is willing to see my but quiet in his demeanor and does not offer details of his history. His documented history includes homelessness and remote frostbite. Denies malfitting shoes, previous foot surgeries and diabetes. No fever or drainage. Review of Systems Review of Systems: Yes Unobtainable due to mental condition [facility] Medical History (Updated 02/14/22 @ 12:08 by STEVEN Mendez) Chronic pain PTSD (post-traumatic stress disorder) Schizoaffective disorder, bipolar type Social History Household Members: None Housing: Unknown / Unable to assess Do you presently have visiting nurse or other home services: No Patient Tobacco Use Status: Current everyday Tobacco user Tobacco use type: Cigarette Smoked in Last 30 Days: Yes e-Cigarette/Vaping Use: Never Used Patient Interested in Nicotine Replacement: Yes Patient Given Instructions on How to Stop Smoking: No (not interested) Second Hand Smoke Exposure: No Use of substances other than those prescribed or required for medical reasons: Yes Substance Use Type: Opiates Substance Use Frequency: Daily Last Used Substance: Unknown Currently Displaying Signs/Symptoms of Drug Intoxication Withdrawal: No Any prior treatment program specific to substance use: No Advance Directives: No Advance Directives Information Provided: No Do you have thoughts of harming others: None Do you have a plan to hurt others: No Plan Recently lost weight without trying: Unsure How much weight loss: Unsure Eating poorly because of decreased appetite: Yes Nutrition screen score: 5 Nutrition Risks: Anorexia and Poor intake 0-25% >4 days Poor oral hygiene: Yes service: No Sexual orientation: Straight/Heterosexual Meds Allergies Allergy/AdvReac Type Severity Reaction Status Date / Time No Known Allergies Allergy Verified 02/14/22 00:14 Active Medications: Current Medications Acetaminophen (Acetaminophen 325 Mg Tablet) 650 mg PO Q6H PRN PRN Reason: Headache/Pain Mild Scale (1-3) Al Hydroxide/Mg Hydroxide (Magnesium Hydrox/Alum Hydrox 30 Ml Oral.Susp) 30 ml PO Q6H PRN PRN Reason: Heartburn/Nausea Diphenhydramine HCl (Diphenhydramine Hcl 25 Mg Tablet) 50 mg PO Q4H PRN PRN Reason: agitation Haloperidol (Haloperidol 5 Mg Tablet) 5 mg PO Q4H PRN PRN Reason: agitation Hydroxyzine HCl (Hydroxyzine Hcl 25 Mg Tablet) 25 mg PO Q6H PRN PRN Reason: Anxiety Magnesium Hydroxide (Milk Of Magnesia 30 Ml Oral.Susp) 30 ml PO DAILY PRN PRN Reason: Constipation Nicotine (Nicotine 21 Mg Patch.Td24) 21 mg TRANSDERMA DAILY PRN PRN Reason: nicotine craving Nicotine Polacrilex (Nicotine Polacrilex 2 Mg Gum) 4 mg BUCCAL Q2H PRN PRN Reason: Nicotine Cravings Olanzapine (Olanzapine Odt 10 Mg Tab.Rapdis) 20 mg TRANSLINGU BEDTIME [facility] Last Admin: 02/18/22 20:09 Dose: 20 mg Olanzapine (Olanzapine Odt 10 Mg Tab.Rapdis) 10 mg TRANSLINGU DAILY [facility] Last Admin: 02/19/22 08:06 Dose: 10 mg Trazodone HCl (Trazodone Hcl 50 Mg Tablet) 50 mg PO BEDTIME PRN PRN Reason: Insomnia Home Medications Medication Instructions Recorded Confirmed Last Taken Type clonidine HCl 0.1 mg tablet 1 tab PO BEDTIME 02/14/22 02/14/22 Unknown History haloperidol 5 mg tablet mg PO 02/14/22 Unknown History hydromorphone 2 mg tablet 1 tab PO Q4H PRN pain 02/14/22 02/14/22 Unknown History (Dilaudid) olanzapine 10 mg tablet 1 tab PO BID 02/14/22 02/14/22 Unknown History oxcarbazepine 150 mg tablet 1 tab PO BID 02/14/22 02/14/22 Unknown History silver sulfadiazine 1 % topical appl topical QAM 02/14/22 Unknown History cream (Silvadene) Physical Exam Vital Signs and Narrative: Vital Signs: Last Vital Signs Temp 97.7 F 02/19/22 06:00 Pulse 54 02/19/22 06:00 Resp 16 02/19/22 06:00 BP 92/56 L 02/19/22 06:00 Pulse Ox 98 02/19/22 06:00 O2 Del Method 02/19/22 06:00 BMI result Body Mass Index 21.4 PT pulse palpable on the right. No edema or erythema of the right foot. Scar tissue is noted over the dorsal aspect of the foot which obscures palpation of DP pulse. No open wound on the great toe. Eschar at the tip of the right great toe has unclear significance. Linear darkened nail discoloration is noted with good foot hygiene, in general. No observed tinea or edema. No IP tenderness, swelling or edema of the first ray of the right foot. Results Labs CBC and Chem 7: 02/15/22 07:48 Assessment and Plan (1) Schizoaffective disorder, bipolar type: Status: Acute Plan No open wound of the right great toe. No recommendations for topical wound care. Consider vascular workup if indicated.
[2022-02-19] MEDS: OLANZapine ODT 10 MG TAB.RAPDIS 20 MG TRANSLINGU (21:14)
[2022-02-20] MEDS: OLANZapine ODT 10 MG TAB.RAPDIS TRANSLINGU (09:01)
--- NOTE | 2022-02-20 09:42 | HO.PSYCHPN ---
Subjective Subjective Date of Service: 02/20/22 Reason For Visit: Schizoaffective d/o bipolar type, PTSD, opioid use Interim History: Patient sitting up on his bed today. A little more talkative and willing to engage. Some in flexion as well and and animation in his face. Patient does not think he has any different than when he 1st was admitted. Blood Bank Assistant shared that he is much more easy to talk with and have a conversation. Patient says that just because he sat up in his talking with pattern chart writer does not mean that he has any different or that the medications are working. He does not think it has anything to do with Zyprexa. Blood Bank Assistant asked about his dog said he has had it for about 5 years. Patient said he does like to read however he finds that his mind often wanders off and is kind of blank. Blood Bank Assistant asked about other of patient's interests and patient remained very vague. He did agree however to consider other medications that might be helpful, since he is adamant that Zyprexa has not affected any change. Otherwise denies psychiatric symptoms. But thinks pattern chart writer for coming And for pattern chart writer to have a nice night. Mental Status Exam Mental Status Exam Narrative: Pt is alert and oriented; behavior is a little more cooperative and conversational; patient is not in distress; dressed in hospital attire, Disheveled, malodorous; mood is described as ok and affect blunted but less and a little more expressive; more eye contact; Speech is normal rate, volume and prosody; psychomotor retardation present; thought process is much more goal directed; still gets disorganized likely due to thought blocking; Thought content per patient is vacuous; seems internally preoccupied and with thought blocking; denies delusional, paranoid ideations and none expressed or solicited; denies any SI/HI. Denies AVH; Patients insight and judgment impaired but have improved some. Diagnostics Vital Signs (24Hr): BMI result Body Mass Index 21.4 Labs Results: 02/15/22 07:48 Medications Medications Current Medications Acetaminophen (Acetaminophen 325 Mg Tablet) 650 mg PO Q6H PRN PRN Reason: Headache/Pain Mild Scale (1-3) Al Hydroxide/Mg Hydroxide (Magnesium Hydrox/Alum Hydrox 30 Ml Oral.Susp) 30 ml PO Q6H PRN PRN Reason: Heartburn/Nausea Diphenhydramine HCl (Diphenhydramine Hcl 25 Mg Tablet) 50 mg PO Q4H PRN PRN Reason: agitation Haloperidol (Haloperidol 5 Mg Tablet) 5 mg PO Q4H PRN PRN Reason: agitation Hydroxyzine HCl (Hydroxyzine Hcl 25 Mg Tablet) 25 mg PO Q6H PRN PRN Reason: Anxiety Magnesium Hydroxide (Milk Of Magnesia 30 Ml Oral.Susp) 30 ml PO DAILY PRN PRN Reason: Constipation Nicotine (Nicotine 21 Mg Patch.Td24) 21 mg TRANSDERMA DAILY PRN PRN Reason: nicotine craving Nicotine Polacrilex (Nicotine Polacrilex 2 Mg Gum) 4 mg BUCCAL Q2H PRN PRN Reason: Nicotine Cravings Olanzapine (Olanzapine Odt 10 Mg Tab.Rapdis) 20 mg TRANSLINGU BEDTIME [facility] Last Admin: 02/19/22 21:14 Dose: 20 mg Olanzapine (Olanzapine Odt 10 Mg Tab.Rapdis) 10 mg TRANSLINGU DAILY [facility] Last Admin: 02/20/22 09:01 Dose: 10 mg Trazodone HCl (Trazodone Hcl 50 Mg Tablet) 50 mg PO BEDTIME PRN PRN Reason: Insomnia Allergies Allergies Allergy/AdvReac Type Severity Reaction Status Date / Time No Known Allergies Allergy Verified 02/14/22 00:14 Assessment & Plan Assessment & Plan (1) Schizoaffective disorder, bipolar type: Status: Acute Code(s): F25.0 - Schizoaffective disorder, bipolar type (2) PTSD (post-traumatic stress disorder): Status: Acute Code(s): F43.10 - Post-traumatic stress disorder, unspecified Plan Patient is a 36-year-old male with history of psychotic illness, substance abuse, past psychiatric hospitalizations who presents after his mother 911 Out of concern for patient's worsening disorganization over the past few weeks, no longer attending to ADLs, not eating or feeding his dog. Patient is malodorous, disheveled -patient is a poor historian not willing to engage giving very minimal answers, irritable edge. Denies all psych symptoms but agrees to restart Zyprexa. 02/15 patient remains difficult to engage; has disorganized thought process, thought blocking and as internally preoccupied. Remains malodorous. Is taking medication however. Agrees he was not eating or bathing for several weeks, but cannot say why. Asked how long he had a be here and pattern chart writer explained the need for him to be able to take care of himself in the community to which patient nodded. Will continue with Zyprexa and see if this helps improve patient's negative symptoms 02/16 remains isolative difficult to engage; says he has no thoughts in his head. Agrees to go up on Zyprexa and agrees that he was not taking care of himself in the community. 02/17 presents the same; will continue to give increased zyprexa dose time to work; did eat all of his breakfast 02/18 May be a small improvement. Patient is also eating. Will continue with current dosing 02/19 patient is more interactive, conversational. More in flexion is voice, better eye contact and a little more affectively expressive. Still remains on his bed, not moving much, disheveled malodorous but he said he is willing to consider getting up and walking around the milieu more. Patient seems to predominantly suffer from negative symptoms. He is eating and drinking fluids, significant improvement from prior to admission. No insight however and patient says he does not feel any differently than since before admission. However when pattern chart writer said he is talking more, he smiled and said I guess. As he improves will attempt some reality testing behaviors prior to admission. 02/20 A little more voice inflection and facial expression; easier to have a conversation though it remains pretty general. Patient is willing to consider other medications. He does not think Zyprexa has had any benefit, even though pattern chart writer shares how much easier it is to talk with patient PLAN: CV Q 15 minute checks Zydis 10mg AM Zydis 20mg qhs (switched desired is for now to better ensure patient is taking medications) Wound care consult for right Hallux: seen on 02/19 No open wound of the right great toe.? No recommendations for topical wound care.? Consider vascular workup if indicated. (pattern chart writer and hospitalist examined and both agree looks like it is healing appropriately; will get Wound consult to see if they have any further recommendations; There is also a dry scaly red patch on dorsum of right foot, not warm, no signs of infection that is also was from the time he got frostbite back in May 2021; denies pain) Refuses other medication or medication changes EKG checked; QT Int : 380 ms/?? QTc Int : 407 ms I spent minutes with the patient and/or on the patient floor today, greater than?50% of which was spent counseling/coordinating care. Patient educated on: diagnosis and medication risk/benefits Informed Consent: understands and further education needed Reason for contiued inpatient stay Substantial Risk for: rapid decompensation
[2022-02-20 16:52] VITALS: BP 108/65; PULSE 79; TEMP 36.1; O2SAT 96
[2022-02-20] MEDS: OLANZapine ODT 10 MG TAB.RAPDIS 20 MG TRANSLINGU (20:21)
[2022-02-21 08:00] VITALS: BP 105/62; PULSE 67; TEMP 36.2; O2SAT 98
[2022-02-21] MEDS: OLANZapine ODT 10 MG TAB.RAPDIS TRANSLINGU (08:10)
--- NOTE | 2022-02-21 16:20 | HO.PSYCHPN ---
Subjective Subjective Date of Service: 02/21/22 Reason For Visit: Schizoaffective d/o bipolar type, PTSD, opioid use Interim History: Patient had a visit with his mother. He said it went well but said he did not want to talk about it and not willing to engage. Patient has left his room to replace dinner trays and continues to eat and drink. Mental Status Exam Mental Status Exam Narrative: Pt is alert and oriented; behavior is a little more cooperative and conversational; patient is not in distress; dressed in hospital attire, Disheveled, malodorous; mood is described as ok and affect blunted but less and a little more expressive; more eye contact; Speech is normal rate, volume and prosody; psychomotor retardation present; thought process is much more goal directed; still gets disorganized likely due to thought blocking; Thought content per patient is vacuous; seems internally preoccupied and with thought blocking; denies delusional, paranoid ideations and none expressed or solicited; denies any SI/HI. Denies AVH; Patients insight and judgment impaired but have improved some. Diagnostics Vital Signs (24Hr): Vital Signs - 24 hr 02/20/22 16:52 02/21/22 08:00 Temperature 97.0 F 97.1 F Pulse Rate 79 67 Blood Pressure 108/65 105/62 Pulse Oximetry 96 98 Oxygen Delivery Method Room Air Room Air BMI result Body Mass Index 21.4 Labs Results: 02/15/22 07:48 Medications Medications Current Medications Acetaminophen (Acetaminophen 325 Mg Tablet) 650 mg PO Q6H PRN PRN Reason: Headache/Pain Mild Scale (1-3) Al Hydroxide/Mg Hydroxide (Magnesium Hydrox/Alum Hydrox 30 Ml Oral.Susp) 30 ml PO Q6H PRN PRN Reason: Heartburn/Nausea Diphenhydramine HCl (Diphenhydramine Hcl 25 Mg Tablet) 50 mg PO Q4H PRN PRN Reason: agitation Haloperidol (Haloperidol 5 Mg Tablet) 5 mg PO Q4H PRN PRN Reason: agitation Hydroxyzine HCl (Hydroxyzine Hcl 25 Mg Tablet) 25 mg PO Q6H PRN PRN Reason: Anxiety Magnesium Hydroxide (Milk Of Magnesia 30 Ml Oral.Susp) 30 ml PO DAILY PRN PRN Reason: Constipation Nicotine (Nicotine 21 Mg Patch.Td24) 21 mg TRANSDERMA DAILY PRN PRN Reason: nicotine craving Nicotine Polacrilex (Nicotine Polacrilex 2 Mg Gum) 4 mg BUCCAL Q2H PRN PRN Reason: Nicotine Cravings Olanzapine (Olanzapine Odt 10 Mg Tab.Rapdis) 20 mg TRANSLINGU BEDTIME [facility] Last Admin: 02/20/22 20:21 Dose: 20 mg Olanzapine (Olanzapine Odt 10 Mg Tab.Rapdis) 10 mg TRANSLINGU DAILY [facility] Last Admin: 02/21/22 08:10 Dose: 10 mg Trazodone HCl (Trazodone Hcl 50 Mg Tablet) 50 mg PO BEDTIME PRN PRN Reason: Insomnia Allergies Allergies Allergy/AdvReac Type Severity Reaction Status Date / Time No Known Allergies Allergy Verified 02/14/22 00:14 Assessment & Plan Assessment & Plan (1) Schizoaffective disorder, bipolar type: Status: Acute Code(s): F25.0 - Schizoaffective disorder, bipolar type (2) PTSD (post-traumatic stress disorder): Status: Acute Code(s): F43.10 - Post-traumatic stress disorder, unspecified Plan Patient is a 36-year-old male with history of psychotic illness, substance abuse, past psychiatric hospitalizations who presents after his mother 911 Out of concern for patient's worsening disorganization over the past few weeks, no longer attending to ADLs, not eating or feeding his dog. Patient is malodorous, disheveled -patient is a poor historian not willing to engage giving very minimal answers, irritable edge. Denies all psych symptoms but agrees to restart Zyprexa. 02/15 patient remains difficult to engage; has disorganized thought process, thought blocking and as internally preoccupied. Remains malodorous. Is taking medication however. Agrees he was not eating or bathing for several weeks, but cannot say why. Asked how long he had a be here and functional tester typewriters explained the need for him to be able to take care of himself in the community to which patient nodded. Will continue with Zyprexa and see if this helps improve patient's negative symptoms 02/16 remains isolative difficult to engage; says he has no thoughts in his head. Agrees to go up on Zyprexa and agrees that he was not taking care of himself in the community. 02/17 presents the same; will continue to give increased zyprexa dose time to work; did eat all of his breakfast 02/18 May be a small improvement. Patient is also eating. Will continue with current dosing 02/19 patient is more interactive, conversational. More in flexion is voice, better eye contact and a little more affectively expressive. Still remains on his bed, not moving much, disheveled malodorous but he said he is willing to consider getting up and walking around the milieu more. Patient seems to predominantly suffer from negative symptoms. He is eating and drinking fluids, significant improvement from prior to admission. No insight however and patient says he does not feel any differently than since before admission. However when functional tester typewriters said he is talking more, he smiled and said I guess. As he improves will attempt some reality testing behaviors prior to admission. 02/20 A little more voice inflection and facial expression; easier to have a conversation though it remains pretty general. Patient is willing to consider other medications. He does not think Zyprexa has had any benefit, even though functional tester typewriters shares how much easier it is to talk with patient PLAN: CV Q 15 minute checks Zydis 10mg AM Zydis 20mg qhs (switched desired is for now to better ensure patient is taking medications) Wound care consult for right Hallux: seen on 02/19 No open wound of the right great toe.? No recommendations for topical wound care.? Consider vascular workup if indicated. (functional tester typewriters and hospitalist examined and both agree looks like it is healing appropriately; will get Wound consult to see if they have any further recommendations; There is also a dry scaly red patch on dorsum of right foot, not warm, no signs of infection that is also was from the time he got frostbite back in May 2021; denies pain) Refuses other medication or medication changes EKG checked; QT Int : 380 ms/?? QTc Int : 407 ms I spent minutes with the patient and/or on the patient floor today, greater than?50% of which was spent counseling/coordinating care. Reason for contiued inpatient stay Substantial Risk for: inability to function and rapid decompensation
[2022-02-21 17:25] VITALS: BP 128/68; PULSE 69; RESP 16; TEMP 36.6; O2SAT 98
[2022-02-21] MEDS: OLANZapine ODT 10 MG TAB.RAPDIS 20 MG TRANSLINGU (19:47)
[2022-02-22 06:00] VITALS: BP 106/70; PULSE 77; RESP 14; TEMP 36.2; O2SAT 98
[2022-02-22] MEDS: OLANZapine ODT 10 MG TAB.RAPDIS TRANSLINGU (08:11)
--- NOTE | 2022-02-22 13:21 | P.PNPSI_ITS ---
Subjective Subjective Date of Service: 02/22/22 Reason For Visit: Schizoaffective d/o bipolar type, PTSD, opioid use Interim History: pt back to difficult to engage; no longer willing to consider med changes. Not able or not willing to talk about anything. Remains in bed, disheveled. Not sure if this has anything to do with his mothers visit which he said was good, but seemed more shut down afterward. Mental Status Exam Mental Status Exam Narrative: Pt is alert and oriented; behavior not cooperative, lying in bed, disheveled, difficult to engage;patient is not in distress; dressed in hospital attire, Disheveled, malodorous; mood is described as ok and affect blunt; no eye contact; Speech is sparse but when talks normal rate, volume and prosody; significant psychomotor retardation present; thought process can be goal oriented but also disoranized with thought blocking due to negative symptoms. Thought content per patient is vacuous; not sure if internally preoccupied; denies delusional, paranoid ideations and none expressed or solicited; denies any SI/HI. Denies AVH; Patients insight and judgment impaired. Diagnostics Vital Signs (24Hr): Vital Signs - 24 hr 02/21/22 17:25 02/22/22 06:00 Temperature 98 F 97.1 F Pulse Rate 69 77 Respiratory Rate 16 14 Blood Pressure 128/68 106/70 Pulse Oximetry 98 98 Oxygen Delivery Method Room Air Room Air BMI result Body Mass Index 21.4 Labs Results: 02/15/22 07:48 Medications Medications Current Medications Acetaminophen (Acetaminophen 325 Mg Tablet) 650 mg PO Q6H PRN PRN Reason: Headache/Pain Mild Scale (1-3) Al Hydroxide/Mg Hydroxide (Magnesium Hydrox/Alum Hydrox 30 Ml Oral.Susp) 30 ml PO Q6H PRN PRN Reason: Heartburn/Nausea Diphenhydramine HCl (Diphenhydramine Hcl 25 Mg Tablet) 50 mg PO Q4H PRN PRN Reason: agitation Haloperidol (Haloperidol 5 Mg Tablet) 5 mg PO Q4H PRN PRN Reason: agitation Hydroxyzine HCl (Hydroxyzine Hcl 25 Mg Tablet) 25 mg PO Q6H PRN PRN Reason: Anxiety Magnesium Hydroxide (Milk Of Magnesia 30 Ml Oral.Susp) 30 ml PO DAILY PRN PRN Reason: Constipation Nicotine (Nicotine 21 Mg Patch.Td24) 21 mg TRANSDERMA DAILY PRN PRN Reason: nicotine craving Nicotine Polacrilex (Nicotine Polacrilex 2 Mg Gum) 4 mg BUCCAL Q2H PRN PRN Reason: Nicotine Cravings Olanzapine (Olanzapine Odt 10 Mg Tab.Rapdis) 20 mg TRANSLINGU BEDTIME COUNTS INCLUDE 234 BEDS AT THE [facility] Last Admin: 02/21/22 19:47 Dose: 20 mg Olanzapine (Olanzapine Odt 10 Mg Tab.Rapdis) 10 mg TRANSLINGU DAILY COUNTS INCLUDE 234 BEDS AT THE [facility] Last Admin: 02/22/22 08:11 Dose: 10 mg Trazodone HCl (Trazodone Hcl 50 Mg Tablet) 50 mg PO BEDTIME PRN PRN Reason: Insomnia Allergies Allergies Allergy/AdvReac Type Severity Reaction Status Date / Time No Known Allergies Allergy Verified 02/14/22 00:14 Assessment & Plan Assessment & Plan (1) Schizoaffective disorder, bipolar type: Status: Acute Code(s): F25.0 - Schizoaffective disorder, bipolar type (2) PTSD (post-traumatic stress disorder): Status: Acute Code(s): F43.10 - Post-traumatic stress disorder, unspecified Plan Patient is a 36-year-old male with history of psychotic illness, substance abuse, past psychiatric hospitalizations who presents after his mother 911 Out of concern for patient's worsening disorganization over the past few weeks, no longer attending to ADLs, not eating or feeding his dog. Patient is malodorous, disheveled -patient is a poor historian not willing to engage giving very minimal answers, irritable edge. Denies all psych symptoms but agrees to restart Zyprexa. 02/15 patient remains difficult to engage; has disorganized thought process, thought blocking and as internally preoccupied. Remains malodorous. Is taking medication however. Agrees he was not eating or bathing for several weeks, but cannot say why. Asked how long he had a be here and check writer salesperson explained the need for him to be able to take care of himself in the community to which patient nodded. Will continue with Zyprexa and see if this helps improve patient's negative symptoms 02/16 remains isolative difficult to engage; says he has no thoughts in his head. Agrees to go up on Zyprexa and agrees that he was not taking care of himself in the community. 02/17 presents the same; will continue to give increased zyprexa dose time to work; did eat all of his breakfast 02/18 May be a small improvement. Patient is also eating. Will continue with current dosing 02/19 patient is more interactive, conversational. More in flexion is voice, better eye contact and a little more affectively expressive. Still remains on his bed, not moving much, disheveled malodorous but he said he is willing to consider getting up and walking around the milieu more. Patient seems to predominantly suffer from negative symptoms. He is eating and drinking fluids, significant improvement from prior to admission. No insight however and patient says he does not feel any differently than since before admission. However when check writer salesperson said he is talking more, he smiled and said I guess. As he improves will attempt some reality testing behaviors prior to admission. 02/20 A little more voice inflection and facial expression; easier to have a conversation though it remains pretty general. Patient is willing to consider other medications. He does not think Zyprexa has had any benefit, even though check writer salesperson shares how much easier it is to talk with patient 02/22 back to blunt affect, not engaging; refuses to try different medication. Predominantly negative symptoms. He denies feeling depressed. PLAN: CV Q 15 minute checks Zydis 10mg AM Zydis 20mg qhs (switched desired is for now to better ensure patient is taking medications) Wound care consult for right Hallux: seen on 02/19 No open wound of the right great toe.? No recommendations for topical wound care.? Consider vascular workup if indicated. (check writer salesperson and hospitalist examined and both agree looks like it is healing appropriately; will get Wound consult to see if they have any further recommendations; There is also a dry scaly red patch on dorsum of right foot, not warm, no signs of infection that is also was from the time he got frostbite back in May 2021; denies pain) Refuses other medication or medication changes EKG checked; QT Int : 380 ms/?? QTc Int : 407 ms I spent minutes with the patient and/or on the patient floor today, greater than?50% of which was spent counseling/coordinating care. Patient educated on: diagnosis and medication risk/benefits Informed Consent: does not understand and further education needed Reason for contiued inpatient stay Substantial Risk for: inability to function and rapid decompensation
[2022-02-22 16:31] VITALS: BP 166/61; PULSE 88
[2022-02-22] MEDS: OLANZapine ODT 10 MG TAB.RAPDIS 20 MG TRANSLINGU (20:06)
[2022-02-23] MEDS: OLANZapine ODT 10 MG TAB.RAPDIS TRANSLINGU (08:43)
[2022-02-23 09:21] VITALS: BP 107/68; PULSE 86; RESP 14; TEMP 36.3; O2SAT 95
[2022-02-23 17:33] VITALS: BP 161/88; PULSE 80; TEMP 36.4
[2022-02-23] MEDS: OLANZapine ODT 10 MG TAB.RAPDIS 20 MG TRANSLINGU (19:30)
--- NOTE | 2022-02-23 19:41 | HO.PSYCHPN ---
Subjective Subjective Date of Service: 02/23/22 Reason For Visit: Schizoaffective d/o bipolar type, PTSD, opioid use Subjective Notes: Tejeda Warning Interim History: I spoke with pt's team and pt. Per pt, he is doing alright, sleep was alright, energy is alright. Says he does not understand why he is on olanzapine, as he says he has been on it in the past and it did not help. Per chart, pt is easier to engage with and more verbal since being back on olanzapine but he lacks insight. Insists that whatever they gave me last time he was hospitalized worked, identifies this as generic for ativan. Pt says he is still laying in bed most of the day till i get antsy enough and i cant sit no more. Says he stays in bed because he is bored, im just not doing anything. complains of increased appetite on olanzapine. denies hallucinations. Denies paranoia. He denies feeling depressed but says being here is depressing and he is in the same rut. Doesnt think he has been on antidepressants in the past. Pt is easily agitated during interview, does not feel heard, says im done talking. Appears disengaged from treatment, unmotivated. Medication Compliance: Yes Side effects from medications: No Attending Groups: No Review of Systems Acute medical concerns: No Medical Review of Systems: unchanged Mental Status Exam Mental Status Exam Narrative: Pt is alert and oriented; behavior not cooperative, difficult to engage;patient is not in distress; dressed in hospital attire, Disheveled, malodorous; mood is described as alright and affect constricted; some eye contact; Speech is sparse but when talks normal rate, volume and prosody; significant psychomotor retardation present; thought process can be goal oriented but also disorganized with thought blocking due to negative symptoms. Thought content per patient is vacuous; not sure if internally preoccupied; denies delusional, paranoid ideations and none expressed or solicited; denies any SI/HI. Denies AVH;? Patients insight and judgment impaired. Diagnostics Vital Signs (24Hr): Vital Signs - 24 hr 02/23/22 09:21 02/23/22 17:33 Temperature 97.3 F 97.6 F Pulse Rate 86 80 Respiratory Rate 14 Blood Pressure 107/68 161/88 H Pulse Oximetry 95 Oxygen Delivery Method Room Air BMI result Body Mass Index 21.4 Labs Results: 02/15/22 07:48 Medications Medications Current Medications Acetaminophen (Acetaminophen 325 Mg Tablet) 650 mg PO Q6H PRN PRN Reason: Headache/Pain Mild Scale (1-3) Al Hydroxide/Mg Hydroxide (Magnesium Hydrox/Alum Hydrox 30 Ml Oral.Susp) 30 ml PO Q6H PRN PRN Reason: Heartburn/Nausea Diphenhydramine HCl (Diphenhydramine Hcl 25 Mg Tablet) 50 mg PO Q4H PRN PRN Reason: agitation Haloperidol (Haloperidol 5 Mg Tablet) 5 mg PO Q4H PRN PRN Reason: agitation Hydroxyzine HCl (Hydroxyzine Hcl 25 Mg Tablet) 25 mg PO Q6H PRN PRN Reason: Anxiety Magnesium Hydroxide (Milk Of Magnesia 30 Ml Oral.Susp) 30 ml PO DAILY PRN PRN Reason: Constipation Nicotine (Nicotine 21 Mg Patch.Td24) 21 mg TRANSDERMA DAILY PRN PRN Reason: nicotine craving Nicotine Polacrilex (Nicotine Polacrilex 2 Mg Gum) 4 mg BUCCAL Q2H PRN PRN Reason: Nicotine Cravings Olanzapine (Olanzapine Odt 10 Mg Tab.Rapdis) 20 mg TRANSLINGU BEDTIME [facility] Last Admin: 02/23/22 19:30 Dose: 20 mg Olanzapine (Olanzapine Odt 10 Mg Tab.Rapdis) 10 mg TRANSLINGU DAILY [facility] Last Admin: 02/23/22 08:43 Dose: 10 mg Trazodone HCl (Trazodone Hcl 50 Mg Tablet) 50 mg PO BEDTIME PRN PRN Reason: Insomnia Allergies Allergies Allergy/AdvReac Type Severity Reaction Status Date / Time No Known Allergies Allergy Verified 02/14/22 00:14 Assessment & Plan Assessment & Plan (1) Schizoaffective disorder, bipolar type: Status: Acute Code(s): F25.0 - Schizoaffective disorder, bipolar type (2) PTSD (post-traumatic stress disorder): Status: Acute Code(s): F43.10 - Post-traumatic stress disorder, unspecified Plan Patient is a 36-year-old male with history of psychotic illness, substance abuse, past psychiatric hospitalizations who presents after his mother 911 Out of concern for patient's worsening disorganization over the past few weeks, no longer attending to ADLs, not eating or feeding his dog. Patient is malodorous, disheveled -patient is a poor historian not willing to engage giving very minimal answers, irritable edge. Denies all psych symptoms but agrees to restart Zyprexa. 02/15 patient remains difficult to engage; has disorganized thought process, thought blocking and as internally preoccupied. Remains malodorous. Is taking medication however. Agrees he was not eating or bathing for several weeks, but cannot say why. Asked how long he had a be here and check writer salesperson explained the need for him to be able to take care of himself in the community to which patient nodded. Will continue with Zyprexa and see if this helps improve patient's negative symptoms 02/16 remains isolative difficult to engage; says he has no thoughts in his head. Agrees to go up on Zyprexa and agrees that he was not taking care of himself in the community. 02/17 presents the same; will continue to give increased zyprexa dose time to work; did eat all of his breakfast 02/18 May be a small improvement. Patient is also eating. Will continue with current dosing 02/19 patient is more interactive, conversational. More in flexion is voice, better eye contact and a little more affectively expressive. Still remains on his bed, not moving much, disheveled malodorous but he said he is willing to consider getting up and walking around the milieu more. Patient seems to predominantly suffer from negative symptoms. He is eating and drinking fluids, significant improvement from prior to admission. No insight however and patient says he does not feel any differently than since before admission. However when check writer salesperson said he is talking more, he smiled and said I guess. As he improves will attempt some reality testing behaviors prior to admission. 02/20 A little more voice inflection and facial expression; easier to have a conversation though it remains pretty general. Patient is willing to consider other medications. He does not think Zyprexa has had any benefit, even though check writer salesperson shares how much easier it is to talk with patient 02/22 back to blunt affect, not engaging; refuses to try different medication. Predominantly negative symptoms. He denies feeling depressed. 02/23 Pt asks for ativan, otherwise does not want to engage in tx PLAN: CV Q 15 minute checks Zydis 10mg AM Zydis 20mg qhs (switched desired is for now to better ensure patient is taking medications) Wound care consult for right Hallux: seen on 02/19 No open wound of the right great toe.? No recommendations for topical wound care.? Consider vascular workup if indicated. (check writer salesperson and hospitalist examined and both agree looks like it is healing appropriately; will get Wound consult to see if they have any further recommendations; There is also a dry scaly red patch on dorsum of right foot, not warm, no signs of infection that is also was from the time he got frostbite back in May 2021; denies pain) Refuses other medication or medication changes EKG checked; QT Int : 380 ms/?? QTc Int : 407 ms I spent minutes with the patient and/or on the patient floor today, greater than?50% of which was spent counseling/coordinating care. Patient educated on: medication risk/benefits and therapeutic strategies Reason for contiued inpatient stay Substantial Risk for: med/psych decompensation
[2022-02-24 06:00] VITALS: BP 111/70; PULSE 60; RESP 16; TEMP 36.6; O2SAT 96
[2022-02-24] MEDS: OLANZapine ODT 10 MG TAB.RAPDIS TRANSLINGU (08:13)
--- NOTE | 2022-02-24 15:49 | HO.PSYCHPN ---
Subjective Subjective Date of Service: 02/24/22 Reason For Visit: Schizoaffective d/o bipolar type, PTSD, opioid use Subjective Notes: Conditional Voluntary Healthcare Proxy: No Guardianship: No Medical Problems Affecting Mental Status: No Interim History: Pt co of no motivation, no energy, no interests helpless says this is not his usual state he usually attends to adls (reports normally showers daily) , likes to be up and doing things Medication Compliance: Yes Side effects from medications: No Attending Groups: Intermittent Review of Systems Acute medical concerns: No Review of Systems: no s/e of medications Mental Status Exam Mental Status Exam Narrative: lying in bed in [place] has clothes hasn't washed Patient Appearance: Fatigued and Appropriate Patient Orientation: Person, Place and Time Level of Consciousness: Awake Patient Behavior: Appropriate, Passive, Avoidant, Fatigued, Isolative and Poor Eye Contact Mood Description: Calm and Depressed Affect Description: Apathetic and Withdrawn Patient Cognition Impaired: No Ability to Follow Directions: Fair Speech Pattern: Clear Thought Process: Intact Thought Content: positive for Intact and positive for Poverty of Content (?) Depressive Symptoms: Difficulty Concentrating Judgement: Fair Diagnostics Vital Signs (24Hr): Vital Signs - 24 hr 02/23/22 17:33 02/24/22 06:00 Temperature 97.6 F 97.8 F Pulse Rate 80 60 Respiratory Rate 16 Blood Pressure 161/88 H 111/70 Pulse Oximetry 96 Oxygen Delivery Method Room Air BMI result Body Mass Index 21.4 Labs Results: 02/15/22 07:48 Medications Medications Current Medications Acetaminophen (Acetaminophen 325 Mg Tablet) 650 mg PO Q6H PRN PRN Reason: Headache/Pain Mild Scale (1-3) Al Hydroxide/Mg Hydroxide (Magnesium Hydrox/Alum Hydrox 30 Ml Oral.Susp) 30 ml PO Q6H PRN PRN Reason: Heartburn/Nausea Diphenhydramine HCl (Diphenhydramine Hcl 25 Mg Tablet) 50 mg PO Q4H PRN PRN Reason: agitation Haloperidol (Haloperidol 5 Mg Tablet) 5 mg PO Q4H PRN PRN Reason: agitation Hydroxyzine HCl (Hydroxyzine Hcl 25 Mg Tablet) 25 mg PO Q6H PRN PRN Reason: Anxiety Magnesium Hydroxide (Milk Of Magnesia 30 Ml Oral.Susp) 30 ml PO DAILY PRN PRN Reason: Constipation Nicotine (Nicotine 21 Mg Patch.Td24) 21 mg TRANSDERMA DAILY PRN PRN Reason: nicotine craving Nicotine Polacrilex (Nicotine Polacrilex 2 Mg Gum) 4 mg BUCCAL Q2H PRN PRN Reason: Nicotine Cravings Olanzapine (Olanzapine Odt 10 Mg Tab.Rapdis) 20 mg TRANSLINGU BEDTIME COUNT INCLUDES [facility] Last Admin: 02/23/22 19:30 Dose: 20 mg Olanzapine (Olanzapine Odt 10 Mg Tab.Rapdis) 10 mg TRANSLINGU DAILY COUNT INCLUDES THE [facility] Last Admin: 02/24/22 08:13 Dose: 10 mg Trazodone HCl (Trazodone Hcl 50 Mg Tablet) 50 mg PO BEDTIME PRN PRN Reason: Insomnia Allergies Allergies Allergy/AdvReac Type Severity Reaction Status Date / Time No Known Allergies Allergy Verified 02/14/22 00:14 Assessment & Plan Assessment & Plan (1) Schizoaffective disorder, bipolar type: Status: Acute Code(s): F25.0 - Schizoaffective disorder, bipolar type Assessment and Plan: appears depressed despite 30mg olanzapine ? add on antidepressant unless pt has been Manic (2) PTSD (post-traumatic stress disorder): Status: Acute Code(s): F43.10 - Post-traumatic stress disorder, unspecified Plan Patient is a 36-year-old male with history of psychotic illness, substance abuse, past psychiatric hospitalizations who presents after his mother 911 Out of concern for patient's worsening disorganization over the past few weeks, no longer attending to ADLs, not eating or feeding his dog. Patient is malodorous, disheveled -patient is a poor historian not willing to engage giving very minimal answers, irritable edge. Denies all psych symptoms but agrees to restart Zyprexa. 02/15 patient remains difficult to engage; has disorganized thought process, thought blocking and as internally preoccupied. Remains malodorous. Is taking medication however. Agrees he was not eating or bathing for several weeks, but cannot say why. Asked how long he had a be here and sign writer hand explained the need for him to be able to take care of himself in the community to which patient nodded. Will continue with Zyprexa and see if this helps improve patient's negative symptoms 02/16 remains isolative difficult to engage; says he has no thoughts in his head. Agrees to go up on Zyprexa and agrees that he was not taking care of himself in the community. 02/17 presents the same; will continue to give increased zyprexa dose time to work; did eat all of his breakfast 02/18 May be a small improvement. Patient is also eating. Will continue with current dosing 02/19 patient is more interactive, conversational. More in flexion is voice, better eye contact and a little more affectively expressive. Still remains on his bed, not moving much, disheveled malodorous but he said he is willing to consider getting up and walking around the milieu more. Patient seems to predominantly suffer from negative symptoms. He is eating and drinking fluids, significant improvement from prior to admission. No insight however and patient says he does not feel any differently than since before admission. However when sign writer hand said he is talking more, he smiled and said I guess. As he improves will attempt some reality testing behaviors prior to admission. 02/20 A little more voice inflection and facial expression; easier to have a conversation though it remains pretty general. Patient is willing to consider other medications. He does not think Zyprexa has had any benefit, even though sign writer hand shares how much easier it is to talk with patient 02/22 back to blunt affect, not engaging; refuses to try different medication. Predominantly negative symptoms. He denies feeling depressed. 02/23 Pt asks for ativan, otherwise does not want to engage in tx PLAN: CV Q 15 minute checks Zydis 10mg AM Zydis 20mg qhs (switched desired is for now to better ensure patient is taking medications) Wound care consult for right Hallux: seen on 02/19 No open wound of the right great toe.? No recommendations for topical wound care.? Consider vascular workup if indicated. (sign writer hand and hospitalist examined and both agree looks like it is healing appropriately; will get Wound consult to see if they have any further recommendations; There is also a dry scaly red patch on dorsum of right foot, not warm, no signs of infection that is also was from the time he got frostbite back in May 2021; denies pain) Refuses other medication or medication changes EKG checked; QT Int : 380 ms/?? QTc Int : 407 ms I spent minutes with the patient and/or on the patient floor today, greater than?50% of which was spent counseling/coordinating care. Patient educated on: medication risk/benefits and therapeutic strategies Informed Consent: further education needed Reason for contiued inpatient stay Substantial Risk for: rapid decompensation
[2022-02-24 15:56] VITALS: BP 115/66; PULSE 86
[2022-02-24] MEDS: OLANZapine ODT 10 MG TAB.RAPDIS 20 MG TRANSLINGU (20:19)
[2022-02-25 06:00] VITALS: BP 112/74; PULSE 83; RESP 16; TEMP 36.7; O2SAT 94
[2022-02-25] MEDS: OLANZapine ODT 10 MG TAB.RAPDIS TRANSLINGU (08:44)
--- NOTE | 2022-02-25 11:57 | P.PNPSI_ITS ---
Subjective Subjective Date of Service: 02/25/22 Reason For Visit: Schizoaffective d/o bipolar type, PTSD, opioid use Subjective Notes: Conditional Voluntary Healthcare Proxy: No Guardianship: No Medical Problems Affecting Mental Status: No Interim History: Ongoing apathy and withdrawl - discussed kind of catatonic like and pt described medication the had prior that really helped him at prior hospitalization but then was told to stop it when left- doesn't remember name- We determined it might have been ativan which could see helping with semi withdrawn catatonic like state- Medication Compliance: Yes Side effects from medications: No Review of Systems Acute medical concerns: No Mental Status Exam Mental Status Exam Patient Appearance: Unkempt Patient Orientation: Person, Place, Time and Situation Level of Consciousness: Awake and Alert Patient Behavior: Passive, Resistive to Care, Avoidant and Isolative Mood Description: Apathetic Affect Description: Blunted Patient Cognition Impaired: No Ability to Follow Directions: Fair Speech Pattern: Clear and Impoverished Hallucinations: None Thought Process: Intact Thought Content: positive for Poverty of Content (vague complaints) and positive for Slowed Thinking Depressive Symptoms: Sleeping More Than Usual and Difficulty Concentrating Abnormal Motor Activity Signs and Symptoms: Psychomotor Retardation Judgement: Fair Diagnostics Vital Signs (24Hr): Vital Signs - 24 hr 02/24/22 15:56 02/25/22 06:00 Temperature 98.1 F Pulse Rate 86 83 Respiratory Rate 16 Blood Pressure 115/66 112/74 Pulse Oximetry 94 Oxygen Delivery Method Room Air BMI result Body Mass Index 21.4 Labs Results: 02/15/22 07:48 Medications Medications Current Medications Acetaminophen (Acetaminophen 325 Mg Tablet) 650 mg PO Q6H PRN PRN Reason: Headache/Pain Mild Scale (1-3) Al Hydroxide/Mg Hydroxide (Magnesium Hydrox/Alum Hydrox 30 Ml Oral.Susp) 30 ml PO Q6H PRN PRN Reason: Heartburn/Nausea Diphenhydramine HCl (Diphenhydramine Hcl 25 Mg Tablet) 50 mg PO Q4H PRN PRN Reason: agitation Haloperidol (Haloperidol 5 Mg Tablet) 5 mg PO Q4H PRN PRN Reason: agitation Hydroxyzine HCl (Hydroxyzine Hcl 25 Mg Tablet) 25 mg PO Q6H PRN PRN Reason: Anxiety Magnesium Hydroxide (Milk Of Magnesia 30 Ml Oral.Susp) 30 ml PO DAILY PRN PRN Reason: Constipation Nicotine (Nicotine 21 Mg Patch.Td24) 21 mg TRANSDERMA DAILY PRN PRN Reason: nicotine craving Nicotine Polacrilex (Nicotine Polacrilex 2 Mg Gum) 4 mg BUCCAL Q2H PRN PRN Reason: Nicotine Cravings Olanzapine (Olanzapine Odt 10 Mg Tab.Rapdis) 20 mg TRANSLINGU BEDTIME [facility] Last Admin: 02/24/22 20:19 Dose: 20 mg Olanzapine (Olanzapine Odt 10 Mg Tab.Rapdis) 10 mg TRANSLINGU DAILY [facility] Last Admin: 02/25/22 08:44 Dose: 10 mg Trazodone HCl (Trazodone Hcl 50 Mg Tablet) 50 mg PO BEDTIME PRN PRN Reason: Insomnia Allergies Allergies Allergy/AdvReac Type Severity Reaction Status Date / Time No Known Allergies Allergy Verified 02/14/22 00:14 Assessment & Plan Assessment & Plan (1) Schizoaffective disorder, bipolar type: Status: Acute Code(s): F25.0 - Schizoaffective disorder, bipolar type Assessment and Plan: appears depressed despite 30mg olanzapine ? add on antidepressant unless pt has been Manic 02/25 discussed instead add in lorazepam tid for ? semi catatonic like state (2) PTSD (post-traumatic stress disorder): Status: Acute Code(s): F43.10 - Post-traumatic stress disorder, unspecified Plan Patient is a 36-year-old male with history of psychotic illness, substance abuse, past psychiatric hospitalizations who presents after his mother 911 Out of concern for patient's worsening disorganization over the past few weeks, no longer attending to ADLs, not eating or feeding his dog. Patient is malodorous, disheveled -patient is a poor historian not willing to engage giving very minimal answers, irritable edge. Denies all psych symptoms but agrees to restart Zyprexa. 02/15 patient remains difficult to engage; has disorganized thought process, thought blocking and as internally preoccupied. Remains malodorous. Is taking medication however. Agrees he was not eating or bathing for several weeks, but cannot say why. Asked how long he had a be here and sign writer letterer or painter explained the need for him to be able to take care of himself in the community to which patient nodded. Will continue with Zyprexa and see if this helps improve patient's negative symptoms 02/16 remains isolative difficult to engage; says he has no thoughts in his head. Agrees to go up on Zyprexa and agrees that he was not taking care of himself in the community. 02/17 presents the same; will continue to give increased zyprexa dose time to work; did eat all of his breakfast 02/18 May be a small improvement. Patient is also eating. Will continue with current dosing 02/19 patient is more interactive, conversational. More in flexion is voice, better eye contact and a little more affectively expressive. Still remains on his bed, not moving much, disheveled malodorous but he said he is willing to consider getting up and walking around the milieu more. Patient seems to predominantly suffer from negative symptoms. He is eating and drinking fluids, significant improvement from prior to admission. No insight however and patient says he does not feel any differently than since before admission. However when sign writer letterer or painter said he is talking more, he smiled and said I guess. As he improves will attempt some reality testing behaviors prior to admission. 02/20 A little more voice inflection and facial expression; easier to have a conversation though it remains pretty general. Patient is willing to consider other medications. He does not think Zyprexa has had any benefit, even though sign writer letterer or painter shares how much easier it is to talk with patient 02/22 back to blunt affect, not engaging; refuses to try different medication. P redominantly negative symptoms. He denies feeling depressed. 02/23 Pt asks for ativan, otherwise does not want to engage in tx PLAN: CV Q 15 minute checks Zydis 10mg AM Zydis 20mg qhs (switched desired is for now to better ensure patient is taking medications) Wound care consult for right Hallux: seen on 02/19 No open wound of the right great toe.? No recommendations for topical wound care.? Consider vascular workup if indicated. (sign writer letterer or painter and hospitalist examined and both agree looks like it is healing appropriately; will get Wound consult to see if they have any further recommendations; There is also a dry scaly red patch on dorsum of right foot, not warm, no signs of infection that is also was from the time he got frostbite back in May 2021; denies pain) Refuses other medication or medication changes EKG checked; QT Int : 380 ms/?? QTc Int : 407 ms I spent minutes with the patient and/or on the patient floor today, greater than?50% of which was spent counseling/coordinating care. Patient educated on: medication risk/benefits Informed Consent: further education needed Reason for contiued inpatient stay Substantial Risk for: inability to function and rapid decompensation
[2022-02-25 18:00] VITALS: BP 102/73; PULSE 95; RESP 16; TEMP 37
[2022-02-25] MEDS: LORazepam 0.5 MG TABLET PO (20:49)
[2022-02-25] MEDS: OLANZapine ODT 10 MG TAB.RAPDIS 20 MG TRANSLINGU (20:49)
[2022-02-26] MEDS: LORazepam 0.5 MG TABLET PO ×3 (08:34→19:59)
[2022-02-26] MEDS: OLANZapine ODT 10 MG TAB.RAPDIS TRANSLINGU (08:34)
[2022-02-26 08:51] VITALS: BP 119/72; PULSE 74; RESP 14; TEMP 36.3; O2SAT 98
--- NOTE | 2022-02-26 10:18 | HO.PSYCHPN ---
Subjective Subjective Date of Service: 02/26/22 Reason For Visit: Schizoaffective d/o bipolar type, PTSD, opioid use Interim History: pt up, showered, dressed, hair combed, in the [place] and asking to speak to telegraphic typewriter mechanic. Pt says he is a lot better and explains that being started on the Ativan is what has done it. Pt says it happens frequently, that he goes to a hospital, he's started on medication but then outpt person does not continue them and slowly he ends up decompenstating. Regarding prior to admission, pt says it's like he's stuck... his mind is stuck and he can't think of words and has no motivation. He also say he was malnurished and feeing weak when he first came to the unit. Patient explained he was not trying to be an ass by not answering questions when he 1st got here but simply he just could not figure out what to say. Said now my moods are away, I am walking around on communicating. Patient says he is feeling happy now. Patient is sure that his improvement is due to current medication regimen and hopes it will continue. pt denies Si/HI/AVH. Says he has been sober for years Regarding therapy, patient says it just does not work for him. Patient says it is difficult for him to trust others enough to talk about things and often when he does talk it just makes him feel worse, bringing up angry feelings that will not go away. He says however he will continue to go and that his current therapist understands his read a since. Patient asks for discharge. telegraphic typewriter mechanic spoke w/ patients mother who said he sounds great on the phone and that he talked to her for 15 minutes; she says last time he was admitted at [facility] he improved with Zyprexa but only after they added Ativan as well. She concurs that this medication was not continued on discharge and that patient started to decompensate. She said he has a diagnosis of schizoaffective disorder and described what sounds like possibly a hypomanic episode though was not very clear. Mental Status Exam Mental Status Exam Narrative: Pt is alert and oriented; behavior cooperative, in milue, friendly, calm, conversational; dressed in casual attire, improved hygiene, combed hair, showered; mood described as happy and affect congruent, bright and emotionally expressive; good eye contact; Speech is normal rate, volume, prosody; no psychomotor retardation present; thought process goal oriented and organized; no thought blocking; negative symptoms resolved; Thought content on improved mood, discharging, seeing his dog; denies delusional, paranoid ideations and none expressed or solicited; denies any SI/HI. Denies AVH; Patients insight and judgment are significantly improved and fair. Diagnostics Vital Signs (24Hr): Vital Signs - 24 hr 02/25/22 18:00 02/26/22 08:51 Temperature 98.6 F 97.4 F Pulse Rate 95 74 Respiratory Rate 16 14 Blood Pressure 102/73 119/72 Pulse Oximetry 98 Oxygen Delivery Method Room Air BMI result Body Mass Index 21.4 Labs Results: 02/15/22 07:48 Medications Medications Current Medications Acetaminophen (Acetaminophen 325 Mg Tablet) 650 mg PO Q6H PRN PRN Reason: Headache/Pain Mild Scale (1-3) Al Hydroxide/Mg Hydroxide (Magnesium Hydrox/Alum Hydrox 30 Ml Oral.Susp) 30 ml PO Q6H PRN PRN Reason: Heartburn/Nausea Diphenhydramine HCl (Diphenhydramine Hcl 25 Mg Tablet) 50 mg PO Q4H PRN PRN Reason: agitation Haloperidol (Haloperidol 5 Mg Tablet) 5 mg PO Q4H PRN PRN Reason: agitation Hydroxyzine HCl (Hydroxyzine Hcl 25 Mg Tablet) 25 mg PO Q6H PRN PRN Reason: Anxiety Lorazepam (Lorazepam 0.5 Mg Tablet) 0.5 mg PO TID [facility] Last Admin: 02/26/22 08:34 Dose: 0.5 mg Magnesium Hydroxide (Milk Of Magnesia 30 Ml Oral.Susp) 30 ml PO DAILY PRN PRN Reason: Constipation Nicotine (Nicotine 21 Mg Patch.Td24) 21 mg TRANSDERMA DAILY PRN PRN Reason: nicotine craving Nicotine Polacrilex (Nicotine Polacrilex 2 Mg Gum) 4 mg BUCCAL Q2H PRN PRN Reason: Nicotine Cravings Olanzapine (Olanzapine Odt 10 Mg Tab.Rapdis) 20 mg TRANSLINGU BEDTIME [facility] Last Admin: 02/25/22 20:49 Dose: 20 mg Olanzapine (Olanzapine Odt 10 Mg Tab.Rapdis) 10 mg TRANSLINGU DAILY [facility] Last Admin: 02/26/22 08:34 Dose: 10 mg Trazodone HCl (Trazodone Hcl 50 Mg Tablet) 50 mg PO BEDTIME PRN PRN Reason: Insomnia Allergies Allergies Allergy/AdvReac Type Severity Reaction Status Date / Time No Known Allergies Allergy Verified 02/14/22 00:14 Assessment & Plan Assessment & Plan (1) Schizoaffective disorder, bipolar type: Status: Acute Code(s): F25.0 - Schizoaffective disorder, bipolar type Assessment and Plan: appears depressed despite 30mg olanzapine ? add on antidepressant unless pt has been Manic 02/25 discussed instead add in lorazepam tid for ? semi catatonic like state (2) PTSD (post-traumatic stress disorder): Status: Acute Code(s): F43.10 - Post-traumatic stress disorder, unspecified Plan Patient is a 36-year-old male with history of psychotic illness, substance abuse, past psychiatric hospitalizations who presents after his mother 911 Out of concern for patient's worsening disorganization over the past few weeks, no longer attending to ADLs, not eating or feeding his dog. Patient is malodorous, disheveled -patient is a poor historian not willing to engage giving very minimal answers, irritable edge. Denies all psych symptoms but agrees to restart Zyprexa. 02/15 patient remains difficult to engage; has disorganized thought process, thought blocking and as internally preoccupied. Remains malodorous. Is taking medication however. Agrees he was not eating or bathing for several weeks, but cannot say why. Asked how long he had a be here and telegraphic typewriter mechanic explained the need for him to be able to take care of himself in the community to which patient nodded. Will continue with Zyprexa and see if this helps improve patient's negative symptoms 02/16 remains isolative difficult to engage; says he has no thoughts in his head. Agrees to go up on Zyprexa and agrees that he was not taking care of himself in the community. 02/17 presents the same; will continue to give increased zyprexa dose time to work; did eat all of his breakfast 02/18 May be a small improvement. Patient is also eating. Will continue with current dosing 02/19 patient is more interactive, conversational. More in flexion is voice, better eye contact and a little more affectively expressive. Still remains on his bed, not moving much, disheveled malodorous but he said he is willing to consider getting up and walking around the milieu more. Patient seems to predominantly suffer from negative symptoms. He is eating and drinking fluids, significant improvement from prior to admission. No insight however and patient says he does not feel any differently than since before admission. However when telegraphic typewriter mechanic said he is talking more, he smiled and said I guess. As he improves will attempt some reality testing behaviors prior to admission. 02/20 A little more voice inflection and facial expression; easier to have a conversation though it remains pretty general. Patient is willing to consider other medications. He does not think Zyprexa has had any benefit, even though telegraphic typewriter mechanic shares how much easier it is to talk with patient 02/22 back to blunt affect, not engaging; refuses to try different medication. Predominantly negative symptoms. He denies feeling depressed. 02/23 Pt asks for ativan, otherwise does not want to engage in tx 02/26 patient is significantly improved, out and about in the milieu, showered, dressed and conversational. Patient is engaged and able to talk about his improvement which he is sure is due to medication regimen. Patient said that i was the Ativan that got him on stock and shares with telegraphic typewriter mechanic he told the covering provider on Saturday that in the past that was what was helpful. Patient put in a 3 day notice and is looking forward to discharging. Patient's mother spoke with him today and also finds that he is back to his regular self. PLAN: Three day Q 15 minute checks Zydis 10mg AM (will switch back to zyprexa) Zydis 20mg qhs Ativan 0.5 mg t.i.d. Wound care consult for right Hallux: seen on 02/19 No open wound of the right great toe.? No recommendations for topical wound care.? Consider vascular workup if indicated. (telegraphic typewriter mechanic and hospitalist examined and both agree looks like it is healing appropriately; will get Wound consult to see if they have any further recommendations; There is also a dry scaly red patch on dorsum of right foot, not warm, no signs of infection that is also was from the time he got frostbite back in May 2021; denies pain) Refuses other medication or medication changes EKG checked; QT Int : 380 ms/?? QTc Int : 407 ms I spent minutes with the patient and/or on the patient floor today, greater than?50% of which was spent counseling/coordinating care. Patient educated on: diagnosis, medication risk/benefits, substance abuse and therapeutic strategies Informed Consent: understands Reason for contiued inpatient stay Substantial Risk for: stable for discharge
--- NOTE | 2022-02-26 12:48 | PC.NURSE ---
pt signed a three day on 02/26/22, will be up on 03/01/22.
[2022-02-26 16:15] VITALS: BP 106/64; PULSE 109; TEMP 37
[2022-02-26] MEDS: Nicotine Polacrilex 2 MG GUM 4 MG BUCCAL ×3 (16:49→22:18)
[2022-02-26] MEDS: OLANZapine 10 MG TABLET 20 MG PO (19:59)
[2022-02-27 06:00] VITALS: BP 105/61; PULSE 83; RESP 14; TEMP 36.5; O2SAT 96
[2022-02-27] MEDS: OLANZapine 10 MG TABLET PO (08:26)
[2022-02-27] MEDS: LORazepam 0.5 MG TABLET PO ×3 (08:26→19:58)
--- NOTE | 2022-02-27 10:18 | HO.PSYCHPN ---
Subjective Subjective Date of Service: 02/27/22 Reason For Visit: Schizoaffective d/o bipolar type, PTSD, opioid use Interim History: again, pt dressed, up and about the milue. pt reports he's good and ready for discharge. Pt says he slept well; denies psych symptoms. Thinks that meds are responsible for improvement. Mental Status Exam Mental Status Exam Narrative: Pt is alert and oriented; behavior cooperative, in milue, friendly, calm, conversational; dressed in casual attire, improved hygiene, combed hair, showered; mood described as happy and affect congruent, bright and emotionally expressive; good eye contact; Speech is normal rate, volume, prosody; no psychomotor retardation present; thought process goal oriented and organized; no thought blocking; negative symptoms resolved; Thought content on improved mood, discharging, seeing his dog; denies delusional, paranoid ideations and none expressed or solicited; denies any SI/HI. Denies AVH; Patients insight and judgment are significantly improved and fair. Diagnostics Vital Signs (24Hr): Vital Signs - 24 hr 02/26/22 16:15 02/27/22 06:00 Temperature 98.6 F 97.7 F Pulse Rate 109 H 83 Respiratory Rate 14 Blood Pressure 106/64 105/61 Pulse Oximetry 96 BMI result Body Mass Index 21.4 Labs Results: 02/15/22 07:48 Medications Medications Current Medications Acetaminophen (Acetaminophen 325 Mg Tablet) 650 mg PO Q6H PRN PRN Reason: Headache/Pain Mild Scale (1-3) Al Hydroxide/Mg Hydroxide (Magnesium Hydrox/Alum Hydrox 30 Ml Oral.Susp) 30 ml PO Q6H PRN PRN Reason: Heartburn/Nausea Diphenhydramine HCl (Diphenhydramine Hcl 25 Mg Tablet) 50 mg PO Q4H PRN PRN Reason: agitation Haloperidol (Haloperidol 5 Mg Tablet) 5 mg PO Q4H PRN PRN Reason: agitation Hydroxyzine HCl (Hydroxyzine Hcl 25 Mg Tablet) 25 mg PO Q6H PRN PRN Reason: Anxiety Lorazepam (Lorazepam 0.5 Mg Tablet) 0.5 mg PO TID [facility] Last Admin: 02/27/22 08:26 Dose: 0.5 mg Magnesium Hydroxide (Milk Of Magnesia 30 Ml Oral.Susp) 30 ml PO DAILY PRN PRN Reason: Constipation Nicotine (Nicotine 21 Mg Patch.Td24) 21 mg TRANSDERMA DAILY PRN PRN Reason: nicotine craving Nicotine Polacrilex (Nicotine Polacrilex 2 Mg Gum) 4 mg BUCCAL Q2H PRN PRN Reason: Nicotine Cravings Last Admin: 02/26/22 22:18 Dose: 4 mg Olanzapine (Olanzapine 10 Mg Tablet) 10 mg PO DAILY [facility] Last Admin: 02/27/22 08:26 Dose: 10 mg Olanzapine (Olanzapine 10 Mg Tablet) 20 mg PO BEDTIME [facility] Last Admin: 02/26/22 19:59 Dose: 20 mg Trazodone HCl (Trazodone Hcl 50 Mg Tablet) 50 mg PO BEDTIME PRN PRN Reason: Insomnia Allergies Allergies Allergy/AdvReac Type Severity Reaction Status Date / Time No Known Allergies Allergy Verified 02/14/22 00:14 Assessment & Plan Assessment & Plan (1) Schizoaffective disorder, bipolar type: Status: Acute Code(s): F25.0 - Schizoaffective disorder, bipolar type Assessment and Plan: appears depressed despite 30mg olanzapine ? add on antidepressant unless pt has been Manic 02/25 discussed instead add in lorazepam tid for ? semi catatonic like state (2) PTSD (post-traumatic stress disorder): Status: Acute Code(s): F43.10 - Post-traumatic stress disorder, unspecified Plan Patient is a 36-year-old male with history of psychotic illness, substance abuse, past psychiatric hospitalizations who presents after his mother 911 Out of concern for patient's worsening disorganization over the past few weeks, no longer attending to ADLs, not eating or feeding his dog. Patient is malodorous, disheveled -patient is a poor historian not willing to engage giving very minimal answers, irritable edge. Denies all psych symptoms but agrees to restart Zyprexa. 02/15 patient remains difficult to engage; has disorganized thought process, thought blocking and as internally preoccupied. Remains malodorous. Is taking medication however. Agrees he was not eating or bathing for several weeks, but cannot say why. Asked how long he had a be here and chief underwriter explained the need for him to be able to take care of himself in the community to which patient nodded. Will continue with Zyprexa and see if this helps improve patient's negative symptoms 02/16 remains isolative difficult to engage; says he has no thoughts in his head. Agrees to go up on Zyprexa and agrees that he was not taking care of himself in the community. 02/17 presents the same; will continue to give increased zyprexa dose time to work; did eat all of his breakfast 02/18 May be a small improvement. Patient is also eating. Will continue with current dosing 02/19 patient is more interactive, conversational. More in flexion is voice, better eye contact and a little more affectively expressive. Still remains on his bed, not moving much, disheveled malodorous but he said he is willing to consider getting up and walking around the milieu more. Patient seems to predominantly suffer from negative symptoms. He is eating and drinking fluids, significant improvement from prior to admission. No insight however and patient says he does not feel any differently than since before admission. However when chief underwriter said he is talking more, he smiled and said I guess. As he improves will attempt some reality testing behaviors prior to admission. 02/20 A little more voice inflection and facial expression; easier to have a conversation though it remains pretty general. Patient is willing to consider other medications. He does not think Zyprexa has had any benefit, even though chief underwriter shares how much easier it is to talk with patient 02/22 back to blunt affect, not engaging; refuses to try different medication. Predominantly negative symptoms. He denies feeling depressed. 02/23 Pt asks for ativan, otherwise does not want to engage in tx 02/26 patient is significantly improved, out and about in the milieu, showered, dressed and conversational. Patient is engaged and able to talk about his improvement which he is sure is due to medication regimen. Patient said that i was the Ativan that got him on stock and shares with chief underwriter he told the covering provider on Saturday that in the past that was what was helpful. Patient put in a 3 day notice and is looking forward to discharging. Patient's mother spoke with him today and also finds that he is back to his regular self. 02/27 stable; remains much improved, organized in speech and behavior. Much improved insight and feels medications are responsible. Pt is looking forward to discharge tomorrow. He is eating, drinking, sleeping. Pt is not in imminent risk of harm to self or others and able to take care of himself; pt request for discharge honored. PLAN: Three day Q 15 minute checks Zydis 10mg AM (will switch back to zyprexa) Zydis 20mg qhs Ativan 0.5 mg t.i.d. Wound care consult for right Hallux: seen on 02/19 No open wound of the right great toe.? No recommendations for topical wound care.? Consider vascular workup if indicated. (chief underwriter and hospitalist examined and both agree looks like it is healing appropriately; will get Wound consult to see if they have any further recommendations; There is also a dry scaly red patch on dorsum of right foot, not warm, no signs of infection that is also was from the time he got frostbite back in May 2021; denies pain) Refuses other medication or medication changes EKG checked; QT Int : 380 ms/?? QTc Int : 407 ms I spent minutes with the patient and/or on the patient floor today, greater than?50% of which was spent counseling/coordinating care. Patient educated on: diagnosis and medication risk/benefits Informed Consent: understands Reason for contiued inpatient stay Substantial Risk for: stable for discharge
[2022-02-27] MEDS: Nicotine Polacrilex 2 MG GUM 4 MG BUCCAL ×2 (13:05→23:36)
[2022-02-27 18:00] VITALS: BP 115/68; PULSE 98; RESP 16; TEMP 36.4; O2SAT 98
[2022-02-27] MEDS: OLANZapine 10 MG TABLET 20 MG PO (19:57)
[2022-02-27] MEDS: traZODone HCL 50 MG TABLET PO (23:36)
[2022-02-28 06:00] VITALS: BP 111/67; PULSE 89; RESP 18; TEMP 36.3; O2SAT 96
[2022-02-28] MEDS: OLANZapine 10 MG TABLET PO (08:34)
[2022-02-28] MEDS: LORazepam 0.5 MG TABLET PO (08:34)
--- NOTE | 2022-02-28 09:26 | P.DS_ITS ---
DS: Providers Provider Date of Service: 02/28/22 Date of admission: 02/13/22 23:42 Date of discharge: 02/28/22 Primary care physician: TERRANCE Samuels Attending physician on admission: Zachariah Sutton Consults: 02/14/22 00:32 Consult to Hospitalist Routine Consulting Provider: Hospitalist Reason For Exam: admission physical 02/17/22 10:59 Consult to Wound Care Routine Consulting Provider: [facility] Reason for consultation: right Hallux wound s/p frostbite Has provider been notified: No Attending physician on discharge: Zachariah Sutton DS: Diagnosis Discharge Diagnosis (1) Schizoaffective disorder, bipolar type: Status: Acute (2) PTSD (post-traumatic stress disorder): Status: Acute DS: Medications Discharge Medications Home Medications: Home Medications Medication Instructions Recorded Confirmed clonidine HCl 0.1 mg tablet 1 tab PO BEDTIME 02/14/22 02/14/22 haloperidol 5 mg tablet mg PO 02/14/22 hydromorphone 2 mg tablet 1 tab PO Q4H PRN pain 02/14/22 02/14/22 (Dilaudid) oxcarbazepine 150 mg tablet 1 tab PO BID 02/14/22 02/14/22 silver sulfadiazine 1 % topical appl topical QAM 02/14/22 cream (Silvadene) Previous Rx's Medication Instructions Recorded nicotine (polacrilex) 4 mg gum 4 mg buccal Q2H 100 days #100 ea 02/28/22 olanzapine 10 mg tablet See Rx Instructions .Route 02/28/22 .COMPLEX 30 days #90 tabs Mental Status Exam Mental Status Exam Narrative: Pt is alert and oriented; behavior cooperative, in milue, friendly, calm, conver sational; dressed in casual attire, improved hygiene, combed hair, showered; mood described as good and affect congruent, bright and emotionally expressive; good eye contact; Speech is normal rate, volume, prosody; no psychomotor retardation present; thought process goal oriented and organized; no thought blocking; negative symptoms resolved; Thought content on improved mood, discharging, seeing his dog; denies delusional, paranoid ideations and none expressed or solicited; denies any SI/HI. Denies AVH; Patients insight and judgment are significantly improved and fair. DS: Summary Hospital Course Hospital Course: HPI: Patient is a 36-year-old male with history of Schizoaffective disorder, bipolar type, hx of catatonia, remote hx of substance abuse, s/p frostbite right Hallux, past psychiatric hospitalizations who presents after his mother 911 Out of concern for patient's worsening disorganization over the past few weeks, no longer attending to ADLs, not eating or feeding his dog. Patient is malodorous, disheveled On admission, -patient is a poor historian not able to engage giving very minimal answers, irritable edge.? Denies all psych symptoms but agrees to restart Zyprexa. 02/15 patient remains difficult to engage; has disorganized thought process, thought blocking and as internally preoccupied.? Remains malodorous.? Is taking medication however.? Agrees he was not eating or bathing for several weeks, but cannot say why.? Asked how long he had a be here and instructional writer explained the need for him to be able to take care of himself in the community to which patient nodded.? Will continue with Zyprexa and see if this helps improve patient's negative symptoms 02/16 remains isolative difficult to engage; says he has no thoughts in his head.? Agrees to go up on Zyprexa and agrees that he was not taking care of himself in the community. 02/17 presents the same; will continue to give increased zyprexa dose time to work; did eat all of his breakfast 02/18 May be a small improvement.? Patient is also eating.? Will continue with current dosing On 02/19 patient was briefly more interactive and conversational with more in flexion is voice, better eye contact and a little more affectively expressive.? He Still remains on his bed, not moving much, disheveled malodorous. This improvement did not last however and he returned to blunt affect and hardly talking. Patient's symptoms did finally improve Once he told instructional writer that in the past he was given Ativan which was helpful. Once Ativan was started patient quickly emerged from his symptoms, was talkative, out of his room, showering and Significantly improved. On schedule Ativan, he remained out and about in the milieu, showering, getting dressed and having full conversations, easy to engage. Patient shared that this has always been the case, that only once he is put back on Ativan does he become unstuck. Patient said that he has a history of getting out of hospitals on Ativan and then his outpatient provider will not continue it and he slowly descends back in to this Stuck State where he has Paucity of thought and no motivation. Print Decorator offered and called patient's outpatient prescriber, Meme Michaels; she did not return calls so called again and left message saying patient needs to be on Scheduled Ativan as an outpatient, or otherwise will become catatonic. ? Patient put in a 3 day notice and is looking forward to discharging.? Patient's mother spoke with him today and also finds that he is back to his regular self. Patient remained much improved with organized in speech and behavior, much improved insight and feels medications are responsible and will continue taking them. He is future oriented looking forward to seeing his dog. Patient iis eating, drinking, sleeping; he returns to his own home and remains close to his supportive mother. Pt is not in imminent risk of harm to self or others and able to take care of himself; pt request for discharge honored. Time spent discussing smoking cessation with patient: 3 to 10 minutes Status at Discharge Functional status at discharge: independent ambulation Overall status at discharge: patient is back to baseline Time Spent with Patient Time attestation: Total time spent providing and/or coordinating discharge services: Time spent: Greater than 30 minutes Discharge Plan Discharge Anticipated Discharge Date/Time: 02/28/22 13:00 Patient Disposition: Home, Self-Care Discharge Diagnosis: schizoaffective disorder, bipolar type Referrals: Betsy Temple FNP-C [Primary Care Provider] - 1 Week Discharge Medications: New nicotine (polacrilex) 4 mg gum 4 mg buccal Q2H 100 Days Qty: 100 0RF lorazepam 0.5 mg Tablet 0.5 mg PO TID Qty: 90 0RF Changed olanzapine 10 mg tablet See Rx Instructions .ROUTE .COMPLEX 30 Days Qty: 90 0RF Rx Instructions: take 1 tab in the AM and 2 tabs at bedtime Discontinued silver sulfadiazine [Silvadene] 1 % cream topical QAM oxcarbazepine 150 mg tablet 1 tab PO BID clonidine HCl 0.1 mg tablet 1 tab PO BEDTIME haloperidol 5 mg tablet PO hydromorphone [Dilaudid] 2 mg tablet 1 tab PO Q4H PRN (Reason: pain) Discharge Orders: Discharge Order (Routine); Ordered 02/28/22 Ordered By: Zachariah Sutton Diet: Regular diet Activity on Discharge: As tolerated Stand Alone Forms: Patient Portal Discharge page Care Plan Goals: Maintain mood and safe behaviors Take medications as prescribed Continue to pursue sobriety Practice coping skills Continue with outpatient providers and reach out to them as needed Health Concerns: Mood stability and behaviors Hx of frostbite right Hallux Plan of Treatment: Follow up with your PCP, psychiatric provider and other outpatient providers regarding above concerns Take medications as prescribed Assessment: Risk assessment at time of discharge:? Patient was interviewed prior to discharge and found to be fully oriented and without any SI or HI. Patient has insight and demonstrates good judgment in terms of wanting to pursue treatment. Patient is not in imminent risk of harm to self or others and has a safety plan that includes presenting to the closest ER or calling 911 if feeling unsafe.? Patient has been observed closely by nursing and unit staff throughout admission; patient has not engaged in any behaviors that suggest dangerousness to self or others and has demonstrated appropriate behaviors and impulse control
== END 2022-02-28 12:25 | disposition home or self-care (01) | DRG 750 ==
PROVIDERS: Admitting Provider Psychiatry & Neurology Psychiatry; PCP Nurse Practitioner Family; Visit Provider Psychiatry & Neurology Psychiatry
DX: F25.0 Schizoaffective disorder, bipolar type (principal); F17.210 Nicotine dependence, cigarettes, uncomplicated; F43.10 Post-traumatic stress disorder, unspecified; G89.29 Other chronic pain; Z71.6 Tobacco abuse counseling; Z79.899 Other long term (current) drug therapy
CPT/HCPCS: 36415; 80061; 83036; 85025; 93005